=== PATIENT | female | born 1935 | race Caucasian/White ===

== ENCOUNTER 2020-03-28 19:16 | Inpatient (IN) ==
--- NOTE | 2020-03-28 19:25 | Emergency Department Note ---
Impression & Plan Hypoxia, COVID-19 virus infection ED Provider Note NAME: ANNE MARIE KELLER AGE: 85 SEX: F : 1935 ARRIVES VIA: Ambulance INFORMANT: Patient, ED PROVIDER(S): Saúl Rodríguez MD Chief Complaint: Hypoxia, recent positive COVID test HPI: Patient does present from [facility] where the patient did have a recent COVID test and the patient was found to have decreased responsiveness and associated hypoxia to 83%. The patient at the bedside does follow basic commands and is able to answer questions appropriately. The patient states that she currently denies any chest pains or shortness of breath that the patient has had a cough. The patient denies fevers or chills chest pains. The patient denies any lower extremity swelling has slightly decreased p.o. intake but no nausea or vomiting. The patient denies any hematuria dysuria or issues with her bowels. There has been reported coronavirus cases in both residents and staff at [facility]. ROS: See HPI for pertinent positives and negatives. A total of 10 systems were reviewed and otherwise negative. Past medical history: See below Surgical history: See below Social history: See below Physical Exam: GENERAL: Mildly ill in appearance, nasal cannula in place. EYE EXAM: Normal conjunctiva. PERRL, no anisocoria and EOM's grossly intact w/o pain. NECK: Supple, no nuchal rigidity, no adenopathy, non-tender. No signs of meningismus. Non-stridulous. Chest: Device in left chest. LUNGS: Crackles present. No tachypnea noted. HEART: NSR, no MRG. ABDOMEN: Abdomen soft, non-tender, normo-active bowel sounds, no masses, no rebound or guarding. BACK: No CVA TTP. SKIN: No rashes and no bruising. UPPER EXTREMITIES: Upper extremities are grossly normal. LOWER EXTREMITIES: Grossly normal, no edema. Negative Homans sign bilaterally. NEURO EXAM: Awake and alert, able to answer basic questions and does follow commands able to move all 4 extremities. Differential diagnoses: Reactive airway disease, pneumonia, pneumothorax, COPD, CHF, infections, cardiac ischemia, pulmonary embolism, musculoskeletal, gastrointestinal, as well as other pathologies. Course: Patient was seen and evaluated the bedside. Full history physical exam was performed. EKG: Indication: Shortness of breath Imaging Studies: Radiology results as stated below per my review in the radiologist's interpretation: Cardiac monitoring: An order was placed for continuous cardiac monitoring. The monitor shows a rate of 74 with sinus rhythm. MDM: Patient does present with concern for hypoxia and recent coronavirus positive testing. The patient did have blood work today which looks fairly unremarkable. The patient was placed under isolation dexamethasone 6 mg IV ordered along with chest x-ray. Patient does have a normal white count H&H and platelet count. The patient's kidney function does show some mild prerenal azotemia. The patient did have an episode of hypotension with the patient did initially receive 500 IV fluid and additional 1 L. The patient's blood pressure did improve after that time. The patient's procalcitonin is not elevated. Troponin is detectable but not elevated. Urinalysis negative for infection. Chest x-ray does show a lesion in the right midlung. Unsure as to whether or not this is new or old as there are no priors for comparison. I did speak with the patient's daughter Katerina Main. I did speak with the on-call hospitalist Dr. Mary MD the patient was admitted to the medicine service. I did speak with the hospitalist service the patient was transitioned to the intensive care unit due to concern for lower BP. The patient did improve with IV fluids alone and in the ICU was 96/55. Critical Care: I have personally spent 75 minutes of critical care time in direct management of this patient. This includes bedside care, interpretation of diagnostic studies, and testing, discussion with consultants, patient, and family members, and other require inpatient management activities. This 75 minutes is in excess of all separately billable procedures. Past Med/Surg History Medical History (Updated 03/29/20 @ 00:33 by Saúl Rodríguez MD) Gastroesophageal reflux disease Hyperlipidemia Hypertension Surgical History (Updated 03/29/20 @ 00:33 by Saúl Rodríguez MD) History of permanent cardiac pacemaker placement Social History Smoking Status: Never smoker Feels Safe at Home: Yes Allergies Allergies Allergy/AdvReac Type Severity Reaction Status Date / Time NSAIDS (Non-Steroidal Allergy Intermediate GI UPSET, Verified 03/28/20 23:15 Anti-Inflamma GI BLEED morphine AdvReac Intermediate Vomiting Verified 03/28/20 23:15 Home Meds Home Medications Medication Instructions Recorded Confirmed apixaban [Eliquis] 5 mg PO BID 03/28/20 03/28/20 atenolol 25 mg PO DAILY 03/28/20 03/28/20 atorvastatin 10 mg PO DAILY 03/28/20 03/28/20 escitalopram oxalate 10 mg PO DAILY 03/28/20 03/28/20 furosemide [Lasix] 20 mg PO DAILY 03/28/20 03/28/20 gabapentin 100 mg PO HS 03/28/20 03/28/20 isosorbide mononitrate 30 mg PO DAILY 03/28/20 03/28/20 lorazepam 0.5 mg PO QID 03/28/20 03/28/20 mirtazapine 7.5 mg PO HS 03/28/20 03/28/20 pantoprazole 40 mg PO BID 03/28/20 03/28/20 potassium chloride 20 meq PO DAILY 03/28/20 03/28/20 temazepam 15 mg PO HS 03/28/20 03/28/20 Results & Data (ED) Vital Signs Vital Signs - 24 hr 03/28/20 19:24 03/28/20 19:30 03/28/20 19:32 Temperature 36.5 C Temperature Source Oral Pulse Rate 85 83 83 Pulse Rate from SpO2 Sensor 85 83 Respiratory Rate 25 H 20 24 Respiratory Effort / Characteristics Non-Labored Spontaneous Blood Pressure 100/55 L 98/58 L 100/55 L Blood Pressure Mean 66 75 70 Pulse Oximetry 82 L 92 83 L Oxygen Delivery Method Room Air Nasal Cannula Room Air Oxygen Flow Rate 4 Sepsis Recent Fever Within 48 Hours No Sepsis New/Unexplained Change in Mental Status No Sepsis Action Taken by Nursing No Action Required Oxygen Flow Rate - Titration 4 Pulse Oximetry Post Tiitration 94 03/28/20 20:00 03/28/20 20:03 03/28/20 20:04 Temperature Temperature Source Pulse Rate 83 Pulse Rate from SpO2 Sensor 82 Respiratory Rate 19 Respiratory Effort / Characteristics Non-Labored Spontaneous Blood Pressure 94/59 L Blood Pressure Mean 64 Pulse Oximetry 92 95 94 Oxygen Delivery Method Nasal Cannula Nasal Cannula Nasal Cannula Oxygen Flow Rate 4 4 4 Sepsis Recent Fever Within 48 Hours Sepsis New/Unexplained Change in Mental Status Sepsis Action Taken by Nursing Oxygen Flow Rate - Titration Pulse Oximetry Post Tiitration 03/28/20 20:15 03/28/20 20:30 03/28/20 20:45 Temperature Temperature Source Pulse Rate 100 H 81 82 Pulse Rate from SpO2 Sensor 86 81 82 Respiratory Rate 20 24 20 Respiratory Effort / Characteristics Non-Labored Spontaneous Blood Pressure 102/62 89/53 L 104/50 L Blood Pressure Mean 82 67 73 Pulse Oximetry 86 L 97 97 Oxygen Delivery Method Nasal Cannula Other Nasal Cannula Other Oxygen Flow Rate 4 4 Sepsis Recent Fever Within 48 Hours Sepsis New/Unexplained Change in Mental Status Sepsis Action Taken by Nursing Oxygen Flow Rate - Titration Pulse Oximetry Post Tiitration 03/28/20 21:00 03/28/20 21:15 Temperature Temperature Source Pulse Rate 78 79 Pulse Rate from SpO2 Sensor 79 79 Respiratory Rate 19 17 Respiratory Effort / Characteristics Blood Pressure 89/57 L 92/54 L Blood Pressure Mean 65 63 Pulse Oximetry 94 89 L Oxygen Delivery Method Nasal Cannula Other Nasal Cannula Other Oxygen Flow Rate 4 4 Sepsis Recent Fever Within 48 Hours Sepsis New/Unexplained Change in Mental Status Sepsis Action Taken by Nursing Oxygen Flow Rate - Titration Pulse Oximetry Post Tiitration Home Medications Current Medication List: was personally reviewed by me Laboratory Data Attestation: I reviewed the patient's lab results. Result diagrams: 03/28/20 20:06 03/28/20 20:06 Lab Results 03/28/20 03/28/20 03/28/20 Range/Units 20:06 20:06 20:06 WBC 8.82 (4.8-10.8) K/uL RBC 5.39 (4.2-5.4) M/uL Hgb 14.3 (12.0-16.0) g/dL Hct 46.1 (37-47) % MCV 85.5 (80-100) fL MCH 26.5 (25-34) pg MCHC 31.0 L (32-36) g/dL RDW Std Deviation 59.7 H (36.4-46.3) fL RDW Coeff of Wali 19.3 H (11.5-14.5) % Plt Count 161 (130-400) K/uL MPV 11.8 H (7.4-10.4) fL Immature Gran % (Auto) 0.3 % Neut % (Auto) 68.7 % Lymph % (Auto) 21.9 % [place] % (Auto) 9.0 % Eos % (Auto) 0.0 % Baso % (Auto) 0.1 % Neut # (Auto) 6.06 (1.4-6.5) K/uL Lymph # (Auto) 1.93 (1.2-3.4) K/uL [place] # (Auto) 0.79 H (0.11-0.59) K/uL Eos # (Auto) 0.00 (0-0.5) K/uL Baso # (Auto) 0.01 (0-0.2) K/uL Immature Gran # (Auto) 0.03 H (0.00-0.02) K/uL PT 23.9 H (9.0-12.0) Seconds INR 2.4 H (0.9-1.1) APTT 53.5 H* (21.0-31.0) Seconds PTT Ratio 1.9 Sodium 143 (136-145) mmol/L Potassium 4.5 (3.5-5.1) mmol/L Chloride 110 H (98-107) mmol/L Carbon Dioxide 25 (21-32) mmol/L Anion Gap 8.0 (3-11) BUN 34 H (7-18) mg/dl Creatinine 1.37 H (0.6-1.2) mg/dl Est Cr Clr Drug Dosing Not Reportable Est GFR ( Amer) 40.7 Est GFR (Non-Af Amer) 35.1 BUN/Creatinine Ratio 24.7 H (10-20) Glucose 84 (70-99) mg/dl Lactate (0.4-2.0) mmol/L Calcium 8.2 L (8.5-10.1) mg/dl Magnesium 1.9 (1.8-2.4) mg/dl Total Bilirubin 1.0 (0.2-1) mg/dl AST 23 (15-37) U/L ALT 11 L (12-78) U/L Alkaline Phosphatase 121 H (45-117) U/L Troponin I 0.044 (0-0.045) ng/ml Total Protein 6.5 (6.4-8.2) gm/dl Albumin 2.7 L (3.4-5.0) gm/dl Globulin 3.8 (2.5-4.0) gm/dl Albumin/Globulin Ratio 0.7 L (0.9-2) Procalcitonin (0-0.5) ng/ml 10/08/20 10/08/20 Range/Units 20:06 20:43 WBC (4.8-10.8) K/uL RBC (4.2-5.4) M/uL Hgb (12.0-16.0) g/dL Hct (37-47) % MCV (80-100) fL MCH (25-34) pg MCHC (32-36) g/dL RDW Std Deviation (36.4-46.3) fL RDW Coeff of Wali (11.5-14.5) % Plt Count (130-400) K/uL MPV (7.4-10.4) fL Immature Gran % (Auto) % Neut % (Auto) % Lymph % (Auto) % [place] % (Auto) % Eos % (Auto) % Baso % (Auto) % Neut # (Auto) (1.4-6.5) K/uL Lymph # (Auto) (1.2-3.4) K/uL [place] # (Auto) (0.11-0.59) K/uL Eos # (Auto) (0-0.5) K/uL Baso # (Auto) (0-0.2) K/uL Immature Gran # (Auto) (0.00-0.02) K/uL PT (9.0-12.0) Seconds INR (0.9-1.1) APTT (21.0-31.0) Seconds PTT Ratio Sodium (136-145) mmol/L Potassium (3.5-5.1) mmol/L Chloride (98-107) mmol/L Carbon Dioxide (21-32) mmol/L Anion Gap (3-11) BUN (7-18) mg/dl Creatinine (0.6-1.2) mg/dl Est Cr Clr Drug Dosing Est GFR ( Amer) Est GFR (Non-Af Amer) BUN/Creatinine Ratio (10-20) Glucose (70-99) mg/dl Lactate 1.9 (0.4-2.0) mmol/L Calcium (8.5-10.1) mg/dl Magnesium (1.8-2.4) mg/dl Total Bilirubin (0.2-1) mg/dl AST (15-37) U/L ALT (12-78) U/L Alkaline Phosphatase (45-117) U/L Troponin I (0-0.045) ng/ml Total Protein (6.4-8.2) gm/dl Albumin (3.4-5.0) gm/dl Globulin (2.5-4.0) gm/dl Albumin/Globulin Ratio (0.9-2) Procalcitonin 0.22 (0-0.5) ng/ml Administered Medications Discontinued Medications Dexamethasone (Dexamethasone Sod Inj 10 Mg/Ml Vial) 6 mg IV NOW ONE Stop: 03/28/20 19:48 Last Admin: 03/28/20 20:12 Dose: 6 mg Documented by: [id number] Sodium Chloride (Nss 1000ml) 500 mls @ 999 mls/hr IV .Q31M ONE Stop: 03/28/20 20:14 Last Infusion: 03/28/20 20:43 Dose: 0 mls/hr Documented by: [id number] Admin: 03/28/20 20:12 Dose: 999 mls/hr Documented by: [id number] Sodium Chloride (Nss 1000ml) 1,000 mls @ 999 mls/hr IV .Q1H1M ONE Stop: 03/28/20 22:09 Last Infusion: 03/28/20 22:30 Dose: 0 mls/hr Documented by: [id number] Admin: 03/28/20 21:29 Dose: 999 mls/hr Documented by: [id number] Albumin Human (Albumin 25%) 50 mls @ 50 mls/hr IV Q1H MAYRA Stop: 03/29/20 00:29 Last Admin: 03/29/20 00:27 Dose: 50 mls/hr Documented by: [id number] Infusion: 03/28/20 23:33 Dose: 0 mls/hr Documented by: [id number] Admin: 03/28/20 22:30 Dose: 50 mls/hr Documented by: [id number] Sodium Chloride (Nss 1000ml) 1,000 mls @ 999 mls/hr IV .Q1H1M MAYRA Stop: 03/28/20 23:20 Last Infusion: 03/28/20 23:33 Dose: 0 mls/hr Documented by: [id number] Admin: 03/28/20 22:30 Dose: 999 mls/hr Documented by: [id number] Discharge Plan Visit Data Chief Complaint: Shortness of Breath/Dyspnea Stated Complaint: SOB, ED Provider: Saúl Rodríguez Discharge Problem: Hypoxia, COVID-19 virus infection Discharge Instructions Interventions: ED Discharge Assessment Last Done: 03/28/20 23:26
[2020-03-28] MEDS ORDERED: SODIUM CHLORIDE 0.9% 1000ML 500 ML IV ONE (19:44)
[2020-03-28] MEDS ORDERED: DEXAMETHASONE SOD INJ 10 MG/ML VIAL IV ONE (19:47)
[2020-03-28 20:17] LABS: Basophils # (auto) 0.01 K/uL (0-0.2); Basophils % (auto) 0.1 %; Hematocrit (blood only) 46.1 % (37-47); Hemoglobin 14.3 g/dL (12.0-16.0); Immature Granulocytes # (auto) 0.03 K/uL (0.00-0.02); Immature Granulocytes % (auto) 0.3 %; Lymphocytes # (auto) 1.93 K/uL (1.2-3.4); Lymphocytes % (auto) 21.9 %; Mean Corpuscular Hemoglobin 26.5 pg (25-34); Mean Corpuscular Volume 85.5 fL (80-100); Mean Platelet Volume 11.8 fL (7.4-10.4); Monocytes # (auto) 0.79 K/uL (0.11-0.59); Neutrophils # (auto) 6.06 K/uL (1.4-6.5); Neutrophils % (auto) 68.7 %; Platelet Count 161 K/uL (130-400); RDW Coefficient of Variation 19.3 % (11.5-14.5); RDW Standard Deviation 59.7 fL (36.4-46.3); Red Blood Count 5.39 M/uL (4.2-5.4); White Blood Count 8.82 K/uL (4.8-10.8)
[2020-03-28 20:34] LABS: Alanine Aminotransferase 11 U/L (12-78); Albumin Level 2.7 gm/dl (3.4-5.0); Aspartate Aminotransferase 23 U/L (15-37); BUN Creatinine Ratio 24.7 (10-20); Blood Urea Nitrogen 34 mg/dl (7-18); Calcium 8.2 mg/dl (8.5-10.1); Carbon Dioxide 25 mmol/L (21-32); Chloride 110 mmol/L (98-107); Est GFR (African American) 40.7; Est GFR (Non-African American) 35.1; Glucose 84 mg/dl (70-99); Magnesium 1.9 mg/dl (1.8-2.4); Potassium 4.5 mmol/L (3.5-5.1); Sodium 143 mmol/L (136-145)
[2020-03-28 20:39] LABS: Albumin Globulin Ratio 0.7 (0.9-2); Alkaline Phosphatase 121 U/L (45-117); Globulin 3.8 gm/dl (2.5-4.0); Total Protein 6.5 gm/dl (6.4-8.2); Troponin I 0.044 ng/ml (0-0.045)
[2020-03-28 20:41] LABS: INR 2.4 (0.9-1.1); Partial Thromboplastin Ratio 1.9; Prothrombin Time 23.9 Seconds (9.0-12.0)
[2020-03-28 20:53] LABS: Partial Thromboplastin Time 53.5 Seconds (21.0-31.0)
[2020-03-28] MEDS ORDERED: SODIUM CHLORIDE 0.9% 1000ML 1,000 ML IV ONE (21:09)
[2020-03-28 22:01] LABS: Appearance Urine Clear (Clear); Bilirubin Urine Negative (Negative); Blood Urine Negative (Negative); Color Urine Yellow; Glucose Urine UA Negative (Negative); Ketones Urine Negative (Negative); Leukocyte Esterase Urine Negative (Negative); Nitrite Urine Negative (Negative); Protein Urine Negative (Negative); Specific Gravity Urine 1.017 (1.000-1.030); Urobilinogen Urine Negative (Negative)
[2020-03-28] MEDS ORDERED: SODIUM CHLORIDE 0.9% 1000ML 1,000 ML IV SCH ×2 (22:20→23:56)
[2020-03-28] MEDS: ALBUMIN 25% 50 ML IV SCH (22:30)
[2020-03-28] MEDS ORDERED: ALUMINUM/MAGNESIUM SUSP 30 ML UDC PO PRN (23:56)
[2020-03-28] MEDS ORDERED: VANCOMYCIN CONSULT ACTIVE PRN (23:56)
[2020-03-28] MEDS ORDERED: ICU PROTOCOL FOR HYPERGLYCEMIA PRN (23:56)
[2020-03-28] MEDS ORDERED: PIPERACILL/TAZOBAC CONSULT ACTIVE PRN (23:56)
[2020-03-28] MEDS ORDERED: MAGNESIUM HYDROXIDE SUSP 30 ML UDC PO PRN (23:56)
[2020-03-29] MEDS ORDERED: PATIENT'S HEIGHT NEEDED SCH (00:15)
[2020-03-29] MEDS: ALBUMIN 25% 50 ML IV SCH ×3 (00:27→03:35)
[2020-03-29] MEDS ORDERED: PIPERACILLIN/TAZOBACTAM 3.375 GM in DEXTROSE 5% 100 ML IV ONE (01:00)
[2020-03-29] MEDS ORDERED: VANCOMYCIN HCL 1,250 MG in SODIUM CHLORIDE 0.9% 250 ML IV ONE (01:00)
--- NOTE | 2020-03-29 01:06 | Critical Care Consultation ---
Date of Consultation March 29, 2020 Assessment & Plan (1) Admitted to intensive care unit: Impression: 85-year-old female presents to the ICU following period of hypotension in the emergency department in the setting of active COVID-19 pneumonia. Neuro - Encephalopathymost likely metabolic encephalopathy due to active infection and advanced age -We will obtain CT head once stabilized as patient is on anticoagulation -Mild elevation of BUN at 33, will trend -Ammonia pending Cardiac - Hypotensionpresented with SBP 70s to 80s in the emergency department, improved following fluid resuscitation -Septic shock versus cardiogenic shock versus dehydration/hypovolemia -Hypovolemia likely as patient has improved with fluid resuscitation, would proceed with IV fluids with caution due to heart failure -Cannot rule out component of heart failure, echo pending to evaluate EF -Troponin negative -Cannot rule out septic shock at this time as patient does have active COVID- 19 pneumonia, however lactate negative and afebrile -We will continue to monitor in ICU for the time being CHFhistory of systolic heart failure per [facility] records -Holding isosorbide mononitrate and atenolol for hypotension at this time -We will hold on diuresis for the time being Anticoagulated?Patient with med rec of Eliquis 5 mg twice daily, not on documentation from prior admission to [facility] -Have attempted multiple times to contact [facility] and patient's daughter in attempt to find out why patient is on Eliquis, without success. -INR on admission 2.5 Respiratory - COVID-19 pneumonia/hypoxiahypoxia likely secondary to COVID-19 pneumonia as patient confirmed positive and presents from [facility] rehab with recent admission to OSH for bacterial pneumonia -Bilateral opacifications noted on chest x-ray, will follow-up final read -No known prior history of pulmonary disease, or tobacco abuse -Patient on long-term anticoagulation and INR 2.5, PE unlikely - receiving dexamethasone, consented for and received coalescent plasma per primary team -Follow-up with Dr. Segura concerning use of Remdesivir -Currently maintaining sats on 4 L nasal cannula, wean with pulse ox with goal sat 86 to 88% -Daily chest x-rays -Patient with recent admission for bacterial pneumonia, will continue antibiotic coverage for the time being, see below GI - N.p.o. for now GERDcontinue PPI RENAL/LYTES - LAUREN?No prior admission to compare creatinine, currently elevated at 1.4 -ATN from hypotension versus dehydration, currently improving with fluid resuscitation as is blood pressure -Avoid nephrotoxins and renally adjust medications -Continue to monitor routine BMPs and trend - Foleystrict I's and O's ENDO - No history of diabetes or thyroid disease TSH pending ICU hyperglycemic protocol HEME - H&H stable, monitor routine CBCs ID - Sepsis?/COVID-19bacterial superinfection unlikely as patient is afebrile, no leukocytosis, pro calcitonin negative -Was given empiric Vanco and Zosyn in the emergency department, Vanco DC'd as nasal MRSA negative -We will continue Zosyn for now as patient with recent admission for bacterial pneumonia -Started on 6 mg IV dexamethasone in ED, received coalescent plasma -Trending LDH and CRP -We will follow-up with Dr. Massey on use of Remdesivir LINES/IV ACCESS - Peripheral IVs DVT PROPHYLAXIS - SCDs, currently on Eliquis with INR 2.5 Thank you for allowing us to participate in the care of this patient. Please refer to my attending physician's documentation for any further recommendations. (2) Hypoxia: (3) Pneumonia due to COVID-19 virus: (4) CAD (coronary artery disease): (5) Hypertension: (6) Gastroesophageal reflux disease: (7) Hyperlipidemia: (8) Depression with anxiety: (9) Current use of assisted anticoagulation: (10) Hypotension: (11) CHF (congestive heart failure): Supervising Physician Co-Signing Physician Notes Patient seen and examined. Discussed with ICU nurse, critical care nurse practitioner, and on multidisciplinary rounds. EMR and imaging was independently reviewed. Patient initially was transferred to the ICU due to hypotension however hypotension resolved and her blood pressures been adequate. She never required initiation of vasopressor agents. She is COVID positive from apparently 3 days ago. She received Decadron per protocol as well as supplemental oxygen. She has been relatively stable overnight. Recommend continuing course of Decadron. Given the fact that she is about 3 days out from her diagnosis, treatment with remdesivir could be considered however the patient has creatinine clearance of only 27 so I would recommend holding off for now. This is not been shown to have mortality benefit but may improve oxygenation index. If her kidney function were to recover fairly rapidly, this medication could be reconsidered. Given that she is more than 3 days out from her diagnosis, I would not recommend convalescent plasma and this will be discontinued. I do recommend addressing CODE STATUS and potentially palliative care involvement. Given the patient's comorbidities, if her clinical condition were to worsen, I am not sure that aggressive interventions including mechanical ventilation would offer her a clinical benefit. She appears appropriate to transfer out of the intensive care unit. We will sign off when she leaves the ICU. Additional management per the hospitalist service History of Present Illness Attending Physician: Shree Ochoa MD History of Present Illness Mrs. Bradford is an 85-year-old female with past medical history including systolic heart failure, GERD, pacemaker, and recent admission to [facility] for bacterial pneumonia in which she completed antibiotic course and was discharged to [facility] for rehab. During admission to [facility] the patient had positive COVID 19 test, and was transferred to the emergency department last night after being found to be hypoxic and altered mental status. In the emergency department, patient was placed on nasal cannula, and administered dexamethasone 6 mg IV. She was consented for coalescent plasma by the primary team, which was administered. She was found to be hypotensive, and received 2.5 L crystalloid and IV albumin. Patient initially showed no improvement from volume resuscitation she was transferred to the ICU for anticipated need for vasopressor support. On arrival to the ICU, patient's blood pressures remain soft with systolics in the 90s and maps in the 60s. Transthoracic echo pending, no prior study at this facility. She is currently confused and does not participate with exam. She is currently hemodynamically stable and maintaining O2 sats on 4 L nasal cannula. We will continue to monitor in ICU at this time, but no current need for vasopressor support for the time being. Allergies Allergy/AdvReac Type Severity Reaction Status Date / Time NSAIDS (Non-Steroidal Allergy Intermediate GI UPSET, Verified 03/28/20 23:15 Anti-Inflamma GI BLEED morphine AdvReac Intermediate Vomiting Verified 03/28/20 23:15 Home Medications Home Medications Medication Instructions Recorded Confirmed Type apixaban [Eliquis] 5 mg PO BID 03/28/20 03/28/20 History atenolol 25 mg PO DAILY 03/28/20 03/28/20 History atorvastatin 10 mg PO DAILY 03/28/20 03/28/20 History escitalopram oxalate 10 mg PO DAILY 03/28/20 03/28/20 History furosemide [Lasix] 20 mg PO DAILY 03/28/20 03/28/20 History gabapentin 100 mg PO HS 03/28/20 03/28/20 History isosorbide mononitrate 30 mg PO DAILY 03/28/20 03/28/20 History lorazepam 0.5 mg PO QID 03/28/20 03/28/20 History mirtazapine 7.5 mg PO HS 03/28/20 03/28/20 History pantoprazole 40 mg PO BID 03/28/20 03/28/20 History potassium chloride 20 meq PO DAILY 03/28/20 03/28/20 History temazepam 15 mg PO HS 03/28/20 03/28/20 History Patient History Medical History (Updated 03/29/20 @ 03:20 by JENIFER Ramirez) CAD (coronary artery disease) Current use of salvage determiner anticoagulation Depression with anxiety Gastroesophageal reflux disease Hyperlipidemia Hypertension Surgical History (Updated 03/29/20 @ 00:33 by Saúl Rodríguez MD) History of permanent cardiac pacemaker placement Social History Smoking Status: Unknown if ever smoked Hx Alcohol Use: No Hx Substance Use: No Preferred Language: [place]agu[place] Communication Ability: Effective Recording Artist Required: No Beliefs That Will Affect Care: None Current Living Situation: Personal Care Facility Other Information That Helps Us Care for You: No Feels Safe at Home: Yes Safety Concerns: Feels Safe At This Time Assistive Devices: None Assistive Devices Comment: none present Review of Systems Review of Systems: Unobtainable due to cognitive status Physical Exam Constitutional: + thin, + altered mental status and + lethargic Eyes: PERRL, conjunctivae normal, anicteric sclerae ENMT: external ear and nose normal, oropharynx normal Neck: trachea midline, no thyromegaly Respiratory: normal respiratory effort, lungs clear to auscultation no labored breathing, no cough, not tachypneic and no stridor Auscultation: no crackles and no wheezes Cardiovascular: RRR, no murmur, no edema Heart Sounds: normal S1 and normal S2 Vessels: no JVD Extremities: normal capillary refill; no pedal edema and no edema Gastrointestinal (Abdomen): normal bowel sounds, soft, nontender, no hepatosplenomegaly Musculoskeletal: no cyanosis or clubbing, extremities motor strength 5/5 Skin: no rashes, warm and dry Neurologic: moves all extremities, awake and + confused Cranial Nerves: PERRL Psychiatric: Orientation: oriented to person; + not oriented to place and + not oriented to time Eye Contact: + poor eye contact Results & Data Results & Data ([facility]) Vital Signs (Past 12 Hours) Vital Signs Temp Pulse Pulse Resp BP BP Pulse Ox 03/29/20 00:45 36.8 C 76 15 94/65 L 97 03/29/20 00:34 36.7 C 75 74 16 77/45 L 95/56 L 95 03/29/20 00:33 72 03/29/20 00:30 95 03/29/20 00:29 72 03/29/20 00:28 95 03/29/20 00:12 36.8 C 78 15 93/52 L 92 03/29/20 00:11 36.8 C 79 14 96/55 L 96 03/28/20 23:15 72 13 79/44 L 94 03/28/20 23:07 90 03/28/20 23:00 70 15 71/41 L 95 03/28/20 22:45 74 13 86/44 L 96 03/28/20 22:35 20 92 03/28/20 22:31 74 15 103/74 94 03/28/20 22:30 80 18 98 03/28/20 22:15 80 19 80/45 L 98 03/28/20 22:03 93 03/28/20 22:00 80 16 93/52 L 90 03/28/20 21:53 81 18 96/62 L 03/28/20 21:27 18 94 03/28/20 21:15 79 17 92/54 L 89 L 03/28/20 21:00 78 19 89/57 L 94 03/28/20 20:45 82 20 104/50 L 97 03/28/20 20:30 81 24 89/53 L 97 03/28/20 20:15 100 H 20 102/62 86 L 03/28/20 20:04 94 03/28/20 20:03 95 03/28/20 20:00 83 19 94/59 L 92 03/28/20 19:32 36.5 C 83 24 100/55 L 83 L 03/28/20 19:30 83 20 98/58 L 92 03/28/20 19:24 85 25 H 100/55 L 82 L Coding Level of Care Code 16740 Office/OBS Consult Lvl 5 Diagnoses Admitted to intensive care unit Z78.9 Hypoxia R09.02 Pneumonia due to COVID-19 virus U07.1; J12.89 CAD (coronary artery disease) I25.10 Hypertension I10 Gastroesophageal reflux disease K21.9 Hyperlipidemia E78.5 Depression with anxiety F41.8 Current use of salvage determiner anticoagulation Z79.01 Hypotension I95.9 CHF (congestive heart failure) I50.9
--- NOTE | 2020-03-29 01:08 | History & Physical Report ---
Date of Service March 29, 2020 The patient was seen and examined on March 28, 2020 Assessment & Plan (1) Admitted to intensive care unit: Admitted to intensive care unit due to hypoxia associated with COVID-19 virus pneumonia, with hypotension. ICU scientist engineer Dr. Segura and staff have been consulted Present on Admission?: Yes (2) Pneumonia due to COVID-19 virus: Initially diagnosed on 03/26/2020 while at [facility]. Received Decadron 6 mg IV in the ED, and will continue 6 mg IV every 12 hours. Vancomycin IV and Zosyn IV per pharmacokinetic monitoring. Presently requiring 4 L nasal cannula oxygen to achieve target pulse ox of 94 to 95%. 1 unit convalescent plasma to be infused this evening, with verbal phone authorization from daughter. To decide upon use of Remdesivir, her daughter, VON, is in agreement with use Present on Admission?: Yes (3) CAD (coronary artery disease): CAD/hypertension- Holding meds due to hypotension. Specifics of CAD not known at this time due to unavailability of records Present on Admission?: Yes (4) Hypertension: Holding atenolol, furosemide, isosorbide mononitrate and potassium chloride due to hypotension Present on Admission?: Yes (5) Hyperlipidemia: Will take atorvastatin when alert. Present on Admission?: Yes (6) Gastroesophageal reflux disease: Hold pantoprazole [address] twice daily Place on famotidine 20 mg IV every 12 hours Present on Admission?: Yes (7) Depression with anxiety: Patient may not be alert enough at this point, will therefore hold E citalopram, gabapentin, lorazepam, mirtazapine and temazepam. Present on Admission?: Yes (8) Current use of intermodal dispatcher anticoagulation: Noted is being on apixaban 5 mg p.o. twice daily from admission records from [facility]. No records available from [facility] at this time, so unclear reasons as to why patient is on Eliquis. INR 2.4 upon admission. Holding Eliquis tonight, would likely be best with Lovenox subcu in a.m. Present on Admission?: Yes (9) Hypotension: Received a total of 2-1/2 L of NSS while in the ED. Received albumin 25 g IV x2 while in the ED. Monitor closely while in the ICU Present on Admission?: Yes Admission and Anticipated Discharge Date Admission Date: March 28, 2020 History of Present Illness Chief Complaint: The patient was transferred to the emergency department from [facility], where she had been diagnosed with COVID 19 on Monday 03/26, with today developing decreased responsiveness and hypoxia to 83% on room air Primary Care Provider: NO PCP The patient is an 85-year-old female with a past medical history including hypertension, hyperlipidemia, depression, CHF, anxiety, CAD, insomnia and GERD. She presents to the ED as noted above. She required 4 L of nasal cannula oxygen in the ED to get pulse ox to 94% range. In the emergency department, she was confused and lethargic. Allergies Allergy/AdvReac Type Severity Reaction Status Date / Time NSAIDS (Non-Steroidal Allergy Intermediate GI UPSET, Verified 03/28/20 23:15 Anti-Inflamma GI BLEED morphine AdvReac Intermediate Vomiting Verified 03/28/20 23:15 Home Medications Home Medications Medication Instructions Recorded Confirmed Type apixaban [Eliquis] 5 mg PO BID 03/28/20 03/28/20 History atenolol 25 mg PO DAILY 03/28/20 03/28/20 History atorvastatin 10 mg PO DAILY 03/28/20 03/28/20 History escitalopram oxalate 10 mg PO DAILY 03/28/20 03/28/20 History furosemide [Lasix] 20 mg PO DAILY 03/28/20 03/28/20 History gabapentin 100 mg PO HS 03/28/20 03/28/20 History isosorbide mononitrate 30 mg PO DAILY 03/28/20 03/28/20 History lorazepam 0.5 mg PO QID 03/28/20 03/28/20 History mirtazapine 7.5 mg PO HS 03/28/20 03/28/20 History pantoprazole 40 mg PO BID 03/28/20 03/28/20 History potassium chloride 20 meq PO DAILY 03/28/20 03/28/20 History temazepam 15 mg PO HS 03/28/20 03/28/20 History Past Med/Surg History Medical History (Updated 03/29/20 @ 01:26 by Shree Ochoa MD) CAD (coronary artery disease) Current use of intermodal dispatcher anticoagulation Depression with anxiety Gastroesophageal reflux disease Hyperlipidemia Hypertension Surgical History (Updated 03/29/20 @ 00:33 by Saúl Rodríguez MD) History of permanent cardiac pacemaker placement Social History Smoking Status: Unknown if ever smoked Hx Alcohol Use: No Hx Substance Use: No Preferred Language: Grenadian Communication Ability: Effective Garment Turner Required: No Beliefs That Will Affect Care: None Current Living Situation: Personal Care Facility Other Information That Helps Us Care for You: No Feels Safe at Home: Yes Safety Concerns: Feels Safe At This Time Assistive Devices: None Assistive Devices Comment: none present Review of Systems Review of Systems: Unobtainable due to cognitive status Physical Exam Physical Exam: The patient is awake, confused, normocephalic and atraumatic, lying in bed and in no acute distress. HEENT--PERRL, EOMI, mucous membranes and oropharynx dry. Neck--supple. No JVD. No bruits. Thyroid normal, trachea midline, no adenopathy. Heart--normal S1 and S2. No murmurs, rubs or gallops. Lungs--coarse breath sounds bilaterally. No respiratory distress, no accessory muscle use. Abdomen--normal bowel sounds and soft. Nontender. Nondistended. Extremities--no cyanosis or clubbing. No edema. Dermatologic--normal skin turgor, normal color, no abnormal lymph nodes, no rash. Neurologic--cranial nerves II through XII grossly intact. Rheumatologic--limited exam Psychiatric--confused Results & Data Results & Data ([facility]) Vital Signs (Past 12 Hours) Vital Signs Temp Pulse Pulse Resp BP BP Pulse Ox 03/29/20 00:45 98.2 F 76 15 94/65 L 97 03/29/20 00:34 98.1 F 75 74 16 77/45 L 95/56 L 95 03/29/20 00:33 72 03/29/20 00:30 95 03/29/20 00:29 72 03/29/20 00:28 95 03/29/20 00:12 98.2 F 78 15 93/52 L 92 03/29/20 00:11 98.2 F 79 14 96/55 L 96 03/28/20 23:15 72 13 79/44 L 94 03/28/20 23:07 90 03/28/20 23:00 70 15 71/41 L 95 10/08/20 22:45 74 13 86/44 L 96 03/28/20 22:35 20 92 03/28/20 22:31 74 15 103/74 94 03/28/20 22:30 80 18 98 03/28/20 22:15 80 19 80/45 L 98 03/28/20 22:03 93 03/28/20 22:00 80 16 93/52 L 90 03/28/20 21:53 81 18 96/62 L 03/28/20 21:27 18 94 03/28/20 21:15 79 17 92/54 L 89 L 03/28/20 21:00 78 19 89/57 L 94 03/28/20 20:45 82 20 104/50 L 97 03/28/20 20:30 81 24 89/53 L 97 03/28/20 20:15 100 H 20 102/62 86 L 03/28/20 20:04 94 03/28/20 20:03 95 03/28/20 20:00 83 19 94/59 L 92 03/28/20 19:32 97.7 F 83 24 100/55 L 83 L 03/28/20 19:30 83 20 98/58 L 92 03/28/20 19:24 85 25 H 100/55 L 82 L Laboratory Results Laboratory Results WBC 8.82 K/uL (4.8-10.8) 03/28/20 20:06 RBC 5.39 M/uL (4.2-5.4) 03/28/20 20:06 Hgb 14.3 g/dL (12.0-16.0) 03/28/20 20:06 Hct 46.1 % (37-47) 03/28/20 20:06 MCV 85.5 fL (80-100) 03/28/20 20:06 MCH 26.5 pg (25-34) 03/28/20 20:06 MCHC 31.0 g/dL (32-36) L 03/28/20 20:06 RDW Std Deviation 59.7 fL (36.4-46.3) H 03/28/20 20:06 RDW Coeff of Wali 19.3 % (11.5-14.5) H 03/28/20 20:06 Plt Count 161 K/uL (130-400) 03/28/20 20:06 MPV 11.8 fL (7.4-10.4) H 03/28/20 20:06 Immature Gran % (Auto) 0.3 % 03/28/20 20:06 Neut % (Auto) 68.7 % 03/28/20 20:06 Lymph % (Auto) 21.9 % 03/28/20 20:06 O'Brien % (Auto) 9.0 % 03/28/20 20:06 Eos % (Auto) 0.0 % 03/28/20 20:06 Baso % (Auto) 0.1 % 03/28/20 20:06 Neut # (Auto) 6.06 K/uL (1.4-6.5) 03/28/20 20:06 Lymph # (Auto) 1.93 K/uL (1.2-3.4) 03/28/20 20:06 O'Brien # (Auto) 0.79 K/uL (0.11-0.59) H 03/28/20 20:06 Eos # (Auto) 0.00 K/uL (0-0.5) 03/28/20 20:06 Baso # (Auto) 0.01 K/uL (0-0.2) 03/28/20 20:06 Immature Gran # (Auto) 0.03 K/uL (0.00-0.02) H 03/28/20 20:06 PT 23.9 Seconds (9.0-12.0) H 03/28/20 20:06 INR 2.4 (0.9-1.1) H 03/28/20 20:06 APTT 53.5 Seconds (21.0-31.0) H* 03/28/20 20: PTT Ratio 1.9 03/28/20 20: Sodium 143 mmol/L (136-145) 03/28/20 20:06 Potassium 4.5 mmol/L (3.5-5.1) 03/28/20 20:06 Chloride 110 mmol/L (98-107) H 03/28/20 20:06 Carbon Dioxide 25 mmol/L (21-32) 03/28/20 20:06 Anion Gap 8.0 (3-11) 03/28/20 20:06 BUN 34 mg/dl (7-18) H 03/28/20 20:06 Creatinine 1.37 mg/dl (0.6-1.2) H 03/28/20 20:06 Est Cr Clr Drug Dosing Not Reportable 03/28/20 20: Est GFR ( Amer) 40.7 03/28/20 20: Est GFR (Non-Af Amer) 35.1 03/28/20 20:06 BUN/Creatinine Ratio 24.7 (10-20) H 03/28/20 20: Glucose 84 mg/dl (70-99) 03/28/20 20: Lactate 1.9 mmol/L (0.4-2.0) 03/28/20 20:43 Calcium 8.2 mg/dl (8.5-10.1) L 03/28/20 20: Magnesium 1.9 mg/dl (1.8-2.4) 03/28/20 20: Total Bilirubin 1.0 mg/dl (0.2-1) 03/28/20 20: AST 23 U/L (15-37) 03/28/20 20: ALT 11 U/L (12-78) L 03/28/20 20: Alkaline Phosphatase 121 U/L (45-117) H 03/28/20 20: Troponin I 0.044 ng/ml (0-0.045) 03/28/20 20: Total Protein 6.5 gm/dl (6.4-8.2) 03/28/20 20: Albumin 2.7 gm/dl (3.4-5.0) L 03/28/20 20: Globulin 3.8 gm/dl (2.5-4.0) 03/28/20 20: Albumin/Globulin Ratio 0.7 (0.9-2) L 03/28/20 20: Procalcitonin 0.22 ng/ml (0-0.5) 03/28/20 20: Urine Color Yellow 03/28/20: Urine Appearance Clear (Clear) 03/28/20: Urine pH 5.0 (4.5-7.5) 03/28/20: Ur Specific [place] 1.017 (1.000-1.030) 03/28/20: Urine Protein Negative (Negative) 03/28/20: Urine Glucose (UA) Negative (Negative) 10/08/20 21:31 Urine Ketones Negative (Negative) 03/28/20 21:31 Urine Blood Negative (Negative) 03/28/20 21:31 Urine Nitrite Negative (Negative) 03/28/20 21:31 Urine Bilirubin Negative (Negative) 03/28/20 21:31 Urine Urobilinogen Negative (Negative) 03/28/20 21:31 Ur Leukocyte Esterase Negative (Negative) 03/28/20 21:31 Blood Type O Positive 03/28/20 22:03 Antibody Screen NEGATIVE 03/28/20 22:03 Code Status & VTE Plan Code Status Full code, as discussed with her daughter over the phone VTE Prophylaxis Plan VTE Prophylaxis will be ordered: Yes Critical Care Time Critical Care Time: Yes Total Critical Care Time: 50 Total critical care time was 50 minutes PG Care Time/CCT Total # of Minutes Spent Total Time Spent with Patient: Total time spent is greater than 50% in coordination of care (as documented) at patient's floor/unit and/or counseling patient: Critical Care Time: Yes Total Critical Care Time: 50 Coding Level of Care Code 83156 Initial Inpt Care Lvl 3 Diagnoses Admitted to intensive care unit Z78.9 Pneumonia due to COVID-19 virus U07.1; J12.89 CAD (coronary artery disease) I25.10 Hypertension I10 Hyperlipidemia E78.5 Gastroesophageal reflux disease K21.9 Depression with anxiety F41.8 Current use of intermodal dispatcher anticoagulation Z79.01 Hypotension I95.9 Additional Codes Critical Care Time - Critical Care Time: Yes ([id number]) Time Spent (min) 50
[2020-03-29 01:56] LABS: iSTAT Allen Test Pass; iSTAT Art Bld Gas pCO2 Correct 42 mmHg (35-46); iSTAT Art Bld Gas pH Corrected 7.291 (7.35-7.45); iSTAT Arterial Blood Gas HCO3 20 meg/L (19-24); iSTAT Arterial Blood Gas pCO2 42 mmHg (35-46); iSTAT Arterial Blood Gas pH 7.29 (7.35-7.45); iSTAT Arterial Blood Gas pO2 74 mmHg (80-95); iSTAT Arterial Blood Gas pO2 C 73; iSTAT Carbon Dioxide 21 mmol/L (24-31); iSTAT Hematocrit 39 % (37-47); iSTAT Hemoglobin 13.3 g/dl (12.0-16.0); iSTAT Potassium 4.2 mmol/L (3.3-5.0); iSTAT Site L Radial; iSTAT Sodium 145 mmol/L (135-144)
[2020-03-29 02:12] LABS: BUN Creatinine Ratio 29.6 (10-20); Calcium 7.8 mg/dl (8.5-10.1); Creatinine Clr Calc Pharmacy 30.4 ml/min; Est GFR (African American) 51.9; Est GFR (Non-African American) 44.8; Potassium 4.3 mmol/L (3.5-5.1)
[2020-03-29 05:25] LABS: Mean Corpuscular Hgb Conc 30.3 g/dL (32-36)
[2020-03-29 05:32] LABS: Prothrombin Time 20.4 Seconds (9.0-12.0)
[2020-03-29 05:41] LABS: Albumin Level 3.2 gm/dl (3.4-5.0); BUN Creatinine Ratio 27.3 (10-20); Calcium 7.6 mg/dl (8.5-10.1); Creatinine Clr Calc Pharmacy 27.7 ml/min; Est GFR (African American) 46.3; Magnesium 1.9 mg/dl (1.8-2.4); Potassium 4.4 mmol/L (3.5-5.1)
[2020-03-29 05:48] LABS: Hemoglobin 12.1 g/dL (12.0-16.0); Mean Corpuscular Hemoglobin 26.5 pg (25-34); Mean Corpuscular Volume 87.7 fL (80-100); RDW Coefficient of Variation 19.4 % (11.5-14.5); RDW Standard Deviation 62.3 fL (36.4-46.3); Red Blood Count 4.56 M/uL (4.2-5.4); White Blood Count 5.21 K/uL (4.8-10.8)
[2020-03-29 05:51] LABS: Albumin Globulin Ratio 1.1 (0.9-2); Bilirubin,Total 1.2 mg/dl (0.2-1); Thyroid Stimulating Hormone 2.33 uIu/ml (0.300-4.500); Total Protein 6.2 gm/dl (6.4-8.2)
[2020-03-29 06:19] LABS: Immature Granulocytes # (auto) 0.01 K/uL (0.00-0.02); Immature Granulocytes % (auto) 0.2 %; Lymphocytes # (auto) 1.34 K/uL (1.2-3.4); Lymphocytes % (auto) 25.7 %; Mean Platelet Volume 11.1 fL (7.4-10.4); Monocytes # (auto) 0.31 K/uL (0.11-0.59); Neutrophils # (auto) 3.55 K/uL (1.4-6.5); Neutrophils % (auto) 68.1 %; Platelet Count 105 K/uL (130-400); Platelet Estimate Decreased (Normal)
--- NOTE | 2020-03-29 07:16 | CT Scan Report ---
CT SCAN OF THE BRAIN WITHOUT IV CONTRAST CLINICAL HISTORY: Change in mental status. COMPARISON STUDY: No priors. TECHNIQUE: Unenhanced axial CT scan of the brain is performed from the vertex to the skull base. A do se lowering technique was utilized adhering to the principles of ALARA. CT DOSE: 729.78 mGycm FINDINGS: Brain parenchyma: There are age-related involutional changes noting moderate subcortical and periven tricular microangiopathic change. There is no hemorrhage, mass effect, or evidence of acute territori al ischemia by CT criteria. Heath-white matter differentiation is preserved. No extra-axial fluid alexander ection is seen. Ventricles, sulci, cisterns: Prominent secondary to involutional change. Intracranial vasculature: There is atherosclerotic calcification of the cavernous carotid and vertebr al arteries. Calvarium: Unremarkable. Sinuses and mastoids: The paranasal sinuses are clear. The mastoid air cells are well pneumatized. Orbits: The bony orbits are grossly intact. There are bilateral ocular lens implants. IMPRESSION: There is no hemorrhage, mass effect, or evidence of acute territorial ischemia by CT suyapa curry. ACT 112: Negative or not required by law. Electronically signed by: Teddy Maddox M.D. 03/29/2020 7:15 AM
--- NOTE | 2020-03-29 07:58 | XRay Report ---
XR chest 1V portable CLINICAL HISTORY: COVID + COMPARISON STUDY: No previous studies for comparison. FINDINGS: Dual-lead left subclavian pacemaker is in place. Left basilar opacity is present with a sma ll left pleural effusion. There is no pneumothorax. There is mild cardiomegaly without evidence for p ulmonary edema. A round density projected the right hilum is noted. This may reflect a calcific lymph node or pulmonary vessels. The pulmonary nodules considered less likely. IMPRESSION: 1. Left basilar opacity which may reflect pneumonia or atelectasis. Radiographic follow up is recomme nded. 2. Small left pleural effusion. ACT 112: Negative or not required by law. Electronically signed by: Eugene Casper M.D. 03/29/2020 7:57 AM
[2020-03-29] MEDS ORDERED: DEXAMETHASONE SOD PHOSPHATE 6 MG in SYRINGE 0 ML IV SCH (08:00)
[2020-03-29] MEDS ORDERED: dexAMETHasone 6 MG in DEXTROSE 5% 25 ML IV SCH (08:00)
[2020-03-29] MEDS: PIPERACILLIN/TAZOBACTAM 3.375 GM in DEXTROSE 5% 100 ML IV SCH ×2 (08:30→16:19)
[2020-03-29] MEDS: dexAMETHasone 6 MG in SYRINGE 0 ML IV SCH (08:30)
--- NOTE | 2020-03-29 09:16 | XRay Report ---
XR chest 1V portable CLINICAL HISTORY: Pneumonia/ COVID19 COMPARISON STUDY: 03/28/2020 FINDINGS: The study is rotated. The heart is mildly enlarged. There is a left subclavian dual-chamber central venous pacemaker. There is persistent dense left lower lobe parenchymal consolidation with a suspected small left pleural effusion. There is mild diffuse interstitial thickening.[ IMPRESSION: 1. Rotated study 2. Persistent left lower lobe parenchymal consolidation with a small left pleural effusion ACT 112: Negative or not required by law. Electronically signed by: Pranav Corrales M.D. 03/29/2020 9:14 AM
--- NOTE | 2020-03-29 11:48 | Electrocardiogram Report ---
Test Reason : Blood Pressure : / mmHG Vent. Rate : 083 BPM Atrial Rate : 083 BPM P-R Int : 224 ms QRS Dur : 094 ms QT Int : 406 ms P-R-T Axes : 082 198 -26 degrees QTc Int : 477 ms Possible limb lead reversal. Sinus rhythm with 1st degree A-V block Incomplete right bundle branch block Right ventricular hypertrophy Poor R wave progression, consider anterior UT vs. lead placement vs. LVH T wave abnormality, consider anterior ischemia Abnormal ECG No previous ECGs available Confirmed by Sean Flores ([id number]) on 03/29/2020 11:47:58 AM Referred By: REFERRED SELF Confirmed By:Arnav Flores
--- NOTE | 2020-03-29 17:21 | Hospitalist Progress Note ---
Date of Service March 29, 2020 Assessment & Plan (1) Pneumonia due to COVID-19 virus: Initially diagnosed on 03/26/2020 while at [facility]. With severe disease evidenced by hypoxia and requirement of oxygen with pneumonia on chest x-ray. Also with acute metabolic encephalopathy resulting f rom acute illness. Encephalopathy seems to be improving today. She remains on 3 L nasal cannula to keep pulse ox at 95% -Continue dexamethasone 6 mg IV once daily x10-day course-started on 03/28 -Continue IV Zosyn in case of superimposed bacterial pneumonia and recent hospitalization for pneumonia at [facility] 2 weeks ago MRSA swab was negative and IV vancomycin was discontinued -Check procalcitonin in the morning and discontinue IV Zosyn if procalcitonin is negative and blood cultures remain no growth -She did receive 1 unit of convalescent plasma Pulmonary recommends against use of Remdesivir due to borderline creatinine clearance unless renal function rapidly improves -Follow CBC, CMP, d-dimer, ferritin, LDH, CRP, ESR, PT/INR in the morning -Okay to advance diet to heart healthy as she is more alert -DC IV fluids (2) Hypoxia: Secondary to COVID-19 pneumonia as above No chronic lung issues except does have scoliosis which may be restrictive -Continue supplemental O2 and wean off as able to keep pulse ox greater than 90- 92% Treating COVID-19 pneumonia as above (3) CAD (coronary artery disease): With a remote history of [place] and stents placed in both 2002 and [address] Tinoco, cardiology in [place] Troponin upon admission was 0.044 ECG shows limb lead reversal and a right bundle branch block but no acute ischemia. The patient denies any chest pain. I do not see aspirin on her home medication list-we will need to find out if there is a reason she is not on an antiplatelet-will discuss with her daughter -Restart home apixaban which is actually for history of PE -Restart home atenolol in the morning as long as blood pressures are improved as they were low -Continue holding home isosorbide until blood pressures stable after restarting atenolol (4) Hypertension: With hypotension requiring ICU admission. Now improved status post IV fluid resuscitation as well as administration of IV albumin -DC IV fluids Restarting home atenolol and furosemide in the morning -Holding home isosorbide as above (5) Hyperlipidemia: Okay to restart home atorvastatin (6) Gastroesophageal reflux disease: Restart home PPI twice daily and discontinue IV Pepcid (7) Depression with anxiety: Mental status is improved and can take p.o. -Restart home Lexapro, mirtazapine and temazepam to avoid withdrawal from benzos She also has lorazepam listed as scheduled 4 times daily. Her daughter confirms that the patient does take this at least 3 times a day every day-we will hold off on making it scheduled until her mental status continues to improve back to normal. -She is restarting temazepam which will help prevent benzodiazepine withdrawal (8) Current use of alf anticoagulation: Discussed with her daughter on the phone-she is on apixaban for history of pulmonary embolism INR 2.4 upon admission and PTT also elevated-this may be secondary to nutritional deficiency/vitamin K deficiency. Will give vitamin K 2.5 mg IV x1 and restart home apixaban 5 mg p.o. twice daily to prevent VTE especially in the setting of COVID-19 (9) History of pulmonary embolism: As above (10) Hypotension: As noted above (11) History of permanent cardiac pacemaker placement: Placed for history of syncope-as per daughter. Sounds like symptomatic bradycardia Pacing on telemetry here (12) Coagulopathy: As noted above Vitamin K being given Follow PT/PTT/INR in the morning (13) CHF (congestive heart failure): Noted in history, but daughter is unaware of this diagnosis. Cannot obtain echo in the setting of COVID positive patient proBNP is significantly elevated at 25,000 upon admission Does have a small left pleural effusion but may be parapneumonic She is on Lasix but no other guideline directed therapy for systolic CHF. Most likely chronic diastolic CHF. She is not volume overloaded at this time Restarting home p.o. Lasix in the morning We will follow daily weights and strict I's and O's (14) CKD (chronic kidney disease) stage 3, GFR 30-59 ml/min: Creatinine minimally elevated and unclear baseline -Avoid nephrotoxins -renally dose meds when appropriate -follow BMP (15) Thrombocytopenia: Platelets mildly low at 106, likely secondary to COVID-19 Follow CBC (16) Scoliosis: Obvious on examination and causes chronic back pain as per her daughter We will restart home gabapentin for pain (17) Insomnia: Okay to restart home temazepam to avoid withdrawal (18) DVT prophylaxis: Apixaban Disposition-stable for downgrade out of the ICU to PCU Discussed CODE STATUS with daughter on the phone at length as patient is with encephalopathy. She reports that her mom wanted to be a DNR/DNI since being at the senior care (as per senior care records), however in past conversations prior to recent hospitalization and placement in senior care, she had stated she wanted to be a full code. Daughter now understands that patient is realiz ing that she does not want to live if she is suffering and very sick. Therefore, she will be changed to a DNR/DNI Admission and Anticipated Discharge Date Admission Date: March 28, 2020 Subjective RN reports that patient was confused all day, however when I saw her, she was very pleasant and conversive. She was pleasantly confused but I was able to explain to her why she is in the hospital. She was surprised to hear that she had COVID-19. She reports some cough and some shortness of breath. Denies any chest pain or abdominal pain. No nausea. She asked me which town she was in and was trying to tell me where her daughter lived but was frustrated that she could not remember the name of the town. Her blood pressures have improved and she was never started on any vasopressors after transfer to the ICU last night. She was given IV albumin and IV fluids. I was notified by the legal associate team that she was stable for discharge out of the ICU. I discussed her care and her history at length with her daughter, Katerina, on the phone. Review of Systems Review of Systems: All systems reviewed & are unremarkable except as noted in HPI & below Physical Exam Constitutional: + thin; no acute distress and not ill appearing Eyes: + anicteric sclerae ENMT: external ear and nose normal, oropharynx normal Neck: trachea midline, no thyromegaly Respiratory: normal respiratory effort (With nasal cannula in place); no cough Auscultation: + crackles (At the bases bilaterally); no rhonchi and no wheezes Cardiovascular: RRR, no murmur, no edema Chest (Breasts): Chest: normal inspection of chest Gastrointestinal (Abdomen): normal bowel sounds, soft, nontender, no hepatosplenomegaly Musculoskeletal: Extremities: extremities normal to inspection; no cyanosis and no clubbing Skin: no rashes, warm and dry Neurologic: moves all extremities and awake; no focal motor deficits Psychiatric: Orientation: alert, oriented to person and cooperative; + not oriented to place and + not oriented to time Eye Contact: good eye contact Speech: normal rate/rhythm/volume of speech Affect: euthymic affect Genitourinary: Ralph catheter in place draining small amount of clear yellow urine Lymphatic: no lymphedema Results & Data Results & Data ([facility]) Vital Signs (Past 12 Hours) Vital Signs Temp Pulse Resp BP Pulse Ox 03/29/20 15:45 70 98 03/29/20 15:30 65 99 03/29/20 15:15 60 96 03/29/20 15:00 60 98 03/29/20 14:51 60 97/59 L 99 03/29/20 14:45 61 98 03/29/20 14:30 60 99 03/29/20 14:15 68 96 03/29/20 14:13 66 103/58 L 98 03/29/20 14:00 62 99 03/29/20 13:45 66 99 03/29/20 13:30 95 H 98 03/29/20 13:15 60 100 03/29/20 13:00 60 97 03/29/20 12:51 66 85/53 L 99 03/29/20 12:45 60 99 03/29/20 12:30 71 97 03/29/20 12:15 99 H 96 03/29/20 12:10 99 H 96/60 L 100 03/29/20 12:01 36.4 C L 60 100 03/29/20 11:59 99 H 77/43 L 100 03/29/20 11:51 99 H 82/49 L 100 03/29/20 11:45 61 100 03/29/20 11:30 71 100 03/29/20 11:15 61 100 03/29/20 11:00 66 97 03/29/20 10:51 69 110/66 100 03/29/20 10:45 64 100 03/29/20 10:30 69 100 03/29/20 10:15 68 100 03/29/20 10:00 64 100 03/29/20 09:52 70 93/63 L 100 03/29/20 09:45 96 H 99 03/29/20 09:30 70 92 03/29/20 09:15 70 100 03/29/20 09:00 36.3 C L 85 20 99 03/29/20 08:53 79 108/51 L 96 03/29/20 08:45 96 H 92 03/29/20 08:43 72 102/60 93 03/29/20 08:30 65 98 03/29/20 08:15 75 94 03/29/20 08:00 68 99 03/29/20 07:51 68 89/48 L 100 03/29/20 07:45 67 98 03/29/20 07:30 97 H 97 03/29/20 07:15 63 98 03/29/20 07:00 64 100 03/29/20 06:51 74 98/53 L 99 03/29/20 06:45 98 H 98 03/29/20 06:30 84 79 L 03/29/20 06:15 96 H 99 03/29/20 06:00 71 98 03/29/20 05:51 100 H 88/50 L 98 Laboratory Results 03/29/20 03/29/20 03/29/20 Range/Units 08:42 05:00 05:00 WBC (4.8-10.8) K/uL RBC (4.2-5.4) M/uL Hgb (12.0-16.0) g/dL POC Hgb (12.0-16.0) g/dl Hct (37-47) % POC Hct (37-47) % MCV (80-100) fL MCH (25-34) pg MCHC (32-36) g/dL RDW Std Deviation (36.4-46.3) fL RDW Coeff of Wali (11.5-14.5) % Plt Count (130-400) K/uL MPV (7.4-10.4) fL Immature Gran % (Auto) % Neut % (Auto) % Lymph % (Auto) % Giles % (Auto) % Eos % (Auto) % Baso % (Auto) % Neut # (Auto) (1.4-6.5) K/uL Lymph # (Auto) (1.2-3.4) K/uL Giles # (Auto) (0.11-0.59) K/uL Eos # (Auto) (0-0.5) K/uL Baso # (Auto) (0-0.2) K/uL Immature Gran # (Auto) (0.00-0.02) K/uL Platelet Estimate (Normal) PT 20.4 H (9.0-12.0) Seconds INR 2.0 H (0.9-1.1) Sample Site POC pH (7.35-7.45) POC pCO2 (35-46) mmHg POC pO2 (80-95) mmHg POC HCO3 (19-24) faviola/L POC Total CO2 (24-31) mmol/L POC Base Excess (-9-1.8) faviola/L ABG pH (Temp Correct) (7.35-7.45) ABG pCO2 (Temp Corrct (35-46) mmHg POC ABG pO2 at Pt Temp POC ABG O2 Sat (90-95) % Jimmy Test O2 Delivery Device POC Sodium (135-144) mmol/L Sodium (136-145) mmol/L POC Potassium (3.3-5.0) mmol/L Potassium (3.5-5.1) mmol/L Chloride (98-107) mmol/L Carbon Dioxide (21-32) mmol/L Anion Gap (3-11) BUN (7-18) mg/dl Creatinine (0.6-1.2) mg/dl Est Cr Clr Drug Dosing ml/min Est GFR ( Amer) Est GFR (Non-Af Amer) BUN/Creatinine Ratio (10-20) Glucose (70-99) mg/dl POC Glucose 101 H (70-99) mg/dl Calcium (8.5-10.1) mg/dl Phosphorus (2.5-4.9) mg/dl Magnesium (1.8-2.4) mg/dl Total Bilirubin (0.2-1) mg/dl AST (15-37) U/L ALT (12-78) U/L Alkaline Phosphatase (45-117) U/L Ammonia < 10.0 L (11-32) umol/L Lactate Dehydrogenase (84-246) U/L C-Reactive Protein (0-0.29) mg/dl NT-Pro-B Natriuret Pep (0-1800) pg/ml Total Protein (6.4-8.2) gm/dl Albumin (3.4-5.0) gm/dl Globulin (2.5-4.0) gm/dl Albumin/Globulin Ratio (0.9-2) TSH (0.300-4.500) uIu/ml Random Cortisol mcg/dl Urine Color Urine Appearance (Clear) Urine pH (4.5-7.5) Ur Specific [place] (1.000-1.030) Urine Protein (Negative) Urine Glucose (UA) (Negative) Urine Ketones (Negative) Urine Blood (Negative) Urine Nitrite (Negative) Urine Bilirubin (Negative) Urine Urobilinogen (Negative) Ur Leukocyte Esterase (Negative) Nasal Screen MRSA (PCR) (Negative) Blood Type Antibody Screen 03/29/20 03/29/20 03/29/20 Range/Units 05:00 05:00 01:43 WBC 5.21 (4.8-10.8) K/uL RBC 4.56 (4.2-5.4) M/uL Hgb 12.1 (12.0-16.0) g/dL POC Hgb (12.0-16.0) g/dl Hct 40.0 (37-47) % POC Hct (37-47) % MCV 87.7 (80-100) fL MCH 26.5 (25-34) pg MCHC 30.3 L (32-36) g/dL RDW Std Deviation 62.3 H (36.4-46.3) fL RDW Coeff of Wali 19.4 H (11.5-14.5) % Plt Count 105 L (130-400) K/uL MPV 11.1 H (7.4-10.4) fL Immature Gran % (Auto) 0.2 % Neut % (Auto) 68.1 % Lymph % (Auto) 25.7 % Giles % (Auto) 6.0 % Eos % (Auto) 0.0 % Baso % (Auto) 0.0 % Neut # (Auto) 3.55 (1.4-6.5) K/uL Lymph # (Auto) 1.34 (1.2-3.4) K/uL Giles # (Auto) 0.31 (0.11-0.59) K/uL Eos # (Auto) 0.00 (0-0.5) K/uL Baso # (Auto) 0.00 (0-0.2) K/uL Immature Gran # (Auto) 0.01 (0.00-0.02) K/uL Platelet Estimate Decreased L (Normal) PT (9.0-12.0) Seconds INR (0.9-1.1) Sample Site POC pH (7.35-7.45) POC pCO2 (35-46) mmHg POC pO2 (80-95) mmHg POC HCO3 (19-24) faviola/L POC Total CO2 (24-31) mmol/L POC Base Excess (-9-1.8) faviola/L ABG pH (Temp Correct) (7.35-7.45) ABG pCO2 (Temp Corrct (35-46) mmHg POC ABG pO2 at Pt Temp POC ABG O2 Sat (90-95) % Jimmy Test O2 Delivery Device POC Sodium (135-144) mmol/L Sodium 145 (136-145) mmol/L POC Potassium (3.3-5.0) mmol/L Potassium 4.4 (3.5-5.1) mmol/L Chloride 115 H (98-107) mmol/L Carbon Dioxide 23 (21-32) mmol/L Anion Gap 7.0 (3-11) BUN 34 H (7-18) mg/dl Creatinine 1.23 H (0.6-1.2) mg/dl Est Cr Clr Drug Dosing 27.7 ml/min Est GFR ( Amer) 46.3 Est GFR (Non-Af Amer) 40.0 BUN/Creatinine Ratio 27.3 H (10-20) Glucose 110 H (70-99) mg/dl POC Glucose (70-99) mg/dl Calcium 7.6 L (8.5-10.1) mg/dl Phosphorus 4.0 (2.5-4.9) mg/dl Magnesium 1.9 (1.8-2.4) mg/dl Total Bilirubin 1.2 H (0.2-1) mg/dl AST 17 (15-37) U/L ALT 10 L (12-78) U/L Alkaline Phosphatase 86 (45-117) U/L Ammonia (11-32) umol/L Lactate Dehydrogenase (84-246) U/L C-Reactive Protein (0-0.29) mg/dl NT-Pro-B Natriuret Pep (0-1800) pg/ml Total Protein 6.2 L (6.4-8.2) gm/dl Albumin 3.2 L (3.4-5.0) gm/dl Globulin 3.0 (2.5-4.0) gm/dl Albumin/Globulin Ratio 1.1 (0.9-2) TSH 2.330 (0.300-4.500) uIu/ml Random Cortisol 22.17 mcg/dl Urine Color Urine Appearance (Clear) Urine pH (4.5-7.5) Ur Specific [place] (1.000-1.030) Urine Protein (Negative) Urine Glucose (UA) (Negative) Urine Ketones (Negative) Urine Blood (Negative) Urine Nitrite (Negative) Urine Bilirubin (Negative) Urine Urobilinogen (Negative) Ur Leukocyte Esterase (Negative) Nasal Screen MRSA (PCR) (Negative) Blood Type Antibody Screen 03/29/20 03/29/20 03/29/20 Range/Units 01:43 01:43 01:40 WBC (4.8-10.8) K/uL RBC (4.2-5.4) M/uL Hgb (12.0-16.0) g/dL POC Hgb 13.3 (12.0-16.0) g/dl Hct (37-47) % POC Hct 39 (37-47) % MCV (80-100) fL MCH (25-34) pg MCHC (32-36) g/dL RDW Std Deviation (36.4-46.3) fL RDW Coeff of Wali (11.5-14.5) % Plt Count (130-400) K/uL MPV (7.4-10.4) fL Immature Gran % (Auto) % Neut % (Auto) % Lymph % (Auto) % Giles % (Auto) % Eos % (Auto) % Baso % (Auto) % Neut # (Auto) (1.4-6.5) K/uL Lymph # (Auto) (1.2-3.4) K/uL Giles # (Auto) (0.11-0.59) K/uL Eos # (Auto) (0-0.5) K/uL Baso # (Auto) (0-0.2) K/uL Immature Gran # (Auto) (0.00-0.02) K/uL Platelet Estimate (Normal) PT (9.0-12.0) Seconds INR (0.9-1.1) Sample Site L Radial POC pH 7.29 L (7.35-7.45) POC pCO2 42 (35-46) mmHg POC pO2 74 L (80-95) mmHg POC HCO3 20 (19-24) faviola/L POC Total CO2 21 L (24-31) mmol/L POC Base Excess -6.0 (-9-1.8) faviola/L ABG pH (Temp Correct) 7.291 L (7.35-7.45) ABG pCO2 (Temp Corrct 42 (35-46) mmHg POC ABG pO2 at Pt Temp 73 POC ABG O2 Sat 93.0 (90-95) % Jimmy Test Pass O2 Delivery Device Cannula POC Sodium 145 H (135-144) mmol/L Sodium 144 (136-145) mmol/L POC Potassium 4.2 (3.3-5.0) mmol/L Potassium 4.3 (3.5-5.1) mmol/L Chloride 117 H (98-107) mmol/L Carbon Dioxide 19 L (21-32) mmol/L Anion Gap 8.0 (3-11) BUN 33 H (7-18) mg/dl Creatinine 1.12 (0.6-1.2) mg/dl Est Cr Clr Drug Dosing 30.4 ml/min Est GFR ( Amer) 51.9 Est GFR (Non-Af Amer) 44.8 BUN/Creatinine Ratio 29.6 H (10-20) Glucose 97 (70-99) mg/dl POC Glucose (70-99) mg/dl Calcium 7.8 L (8.5-10.1) mg/dl Phosphorus (2.5-4.9) mg/dl Magnesium (1.8-2.4) mg/dl Total Bilirubin (0.2-1) mg/dl AST (15-37) U/L ALT (12-78) U/L Alkaline Phosphatase (45-117) U/L Ammonia (11-32) umol/L Lactate Dehydrogenase 227 (84-246) U/L C-Reactive Protein 6.00 H (0-0.29) mg/dl NT-Pro-B Natriuret Pep 97105 H (0-1800) pg/ml Total Protein (6.4-8.2) gm/dl Albumin (3.4-5.0) gm/dl Globulin (2.5-4.0) gm/dl Albumin/Globulin Ratio (0.9-2) TSH (0.300-4.500) uIu/ml Random Cortisol mcg/dl Urine Color Urine Appearance (Clear) Urine pH (4.5-7.5) Ur Specific [place] (1.000-1.030) Urine Protein (Negative) Urine Glucose (UA) (Negative) Urine Ketones (Negative) Urine Blood (Negative) Urine Nitrite (Negative) Urine Bilirubin (Negative) Urine Urobilinogen (Negative) Ur Leukocyte Esterase (Negative) Nasal Screen MRSA (PCR) (Negative) Blood Type Antibody Screen 03/29/20 03/29/20 03/28/20 Range/Units 01:37 00:23 22:03 WBC (4.8-10.8) K/uL RBC (4.2-5.4) M/uL Hgb (12.0-16.0) g/dL POC Hgb (12.0-16.0) g/dl Hct (37-47) % POC Hct (37-47) % MCV (80-100) fL MCH (25-34) pg MCHC (32-36) g/dL RDW Std Deviation (36.4-46.3) fL RDW Coeff of Wali (11.5-14.5) % Plt Count (130-400) K/uL MPV (7.4-10.4) fL Immature Gran % (Auto) % Neut % (Auto) % Lymph % (Auto) % Giles % (Auto) % Eos % (Auto) % Baso % (Auto) % Neut # (Auto) (1.4-6.5) K/uL Lymph # (Auto) (1.2-3.4) K/uL Giles # (Auto) (0.11-0.59) K/uL Eos # (Auto) (0-0.5) K/uL Baso # (Auto) (0-0.2) K/uL Immature Gran # (Auto) (0.00-0.02) K/uL Platelet Estimate (Normal) PT (9.0-12.0) Seconds INR (0.9-1.1) Sample Site POC pH (7.35-7.45) POC pCO2 (35-46) mmHg POC pO2 (80-95) mmHg POC HCO3 (19-24) faviola/L POC Total CO2 (24-31) mmol/L POC Base Excess (-9-1.8) faviola/L ABG pH (Temp Correct) (7.35-7.45) ABG pCO2 (Temp Corrct (35-46) mmHg POC ABG pO2 at Pt Temp POC ABG O2 Sat (90-95) % Jimmy Test O2 Delivery Device POC Sodium (135-144) mmol/L Sodium (136-145) mmol/L POC Potassium (3.3-5.0) mmol/L Potassium (3.5-5.1) mmol/L Chloride (98-107) mmol/L Carbon Dioxide (21-32) mmol/L Anion Gap (3-11) BUN (7-18) mg/dl Creatinine (0.6-1.2) mg/dl Est Cr Clr Drug Dosing ml/min Est GFR ( Amer) Est GFR (Non-Af Amer) BUN/Creatinine Ratio (10-20) Glucose (70-99) mg/dl POC Glucose 95 (70-99) mg/dl Calcium (8.5-10.1) mg/dl Phosphorus (2.5-4.9) mg/dl Magnesium (1.8-2.4) mg/dl Total Bilirubin (0.2-1) mg/dl AST (15-37) U/L ALT (12-78) U/L Alkaline Phosphatase (45-117) U/L Ammonia (11-32) umol/L Lactate Dehydrogenase (84-246) U/L C-Reactive Protein (0-0.29) mg/dl NT-Pro-B Natriuret Pep (0-1800) pg/ml Total Protein (6.4-8.2) gm/dl Albumin (3.4-5.0) gm/dl Globulin (2.5-4.0) gm/dl Albumin/Globulin Ratio (0.9-2) TSH (0.300-4.500) uIu/ml Random Cortisol mcg/dl Urine Color Urine Appearance (Clear) Urine pH (4.5-7.5) Ur Specific [place] (1.000-1.030) Urine Protein (Negative) Urine Glucose (UA) (Negative) Urine Ketones (Negative) Urine Blood (Negative) Urine Nitrite (Negative) Urine Bilirubin (Negative) Urine Urobilinogen (Negative) Ur Leukocyte Esterase (Negative) Nasal Screen MRSA (PCR) Negative (Negative) Blood Type O Positive Antibody Screen NEGATIVE 03/28/20 Range/Units 21:31 WBC (4.8-10.8) K/uL RBC (4.2-5.4) M/uL Hgb (12.0-16.0) g/dL POC Hgb (12.0-16.0) g/dl Hct (37-47) % POC Hct (37-47) % MCV (80-100) fL MCH (25-34) pg MCHC (32-36) g/dL RDW Std Deviation (36.4-46.3) fL RDW Coeff of Wali (11.5-14.5) % Plt Count (130-400) K/uL MPV (7.4-10.4) fL Immature Gran % (Auto) % Neut % (Auto) % Lymph % (Auto) % Giles % (Auto) % Eos % (Auto) % Baso % (Auto) % Neut # (Auto) (1.4-6.5) K/uL Lymph # (Auto) (1.2-3.4) K/uL Giles # (Auto) (0.11-0.59) K/uL Eos # (Auto) (0-0.5) K/uL Baso # (Auto) (0-0.2) K/uL Immature Gran # (Auto) (0.00-0.02) K/uL Platelet Estimate (Normal) PT (9.0-12.0) Seconds INR (0.9-1.1) Sample Site POC pH (7.35-7.45) POC pCO2 (35-46) mmHg POC pO2 (80-95) mmHg POC HCO3 (19-24) faviola/L POC Total CO2 (24-31) mmol/L POC Base Excess (-9-1.8) faviola/L ABG pH (Temp Correct) (7.35-7.45) ABG pCO2 (Temp Corrct (35-46) mmHg POC ABG pO2 at Pt Temp POC ABG O2 Sat (90-95) % Jimmy Test O2 Delivery Device POC Sodium (135-144) mmol/L Sodium (136-145) mmol/L POC Potassium (3.3-5.0) mmol/L Potassium (3.5-5.1) mmol/L Chloride (98-107) mmol/L Carbon Dioxide (21-32) mmol/L Anion Gap (3-11) BUN (7-18) mg/dl Creatinine (0.6-1.2) mg/dl Est Cr Clr Drug Dosing ml/min Est GFR ( Amer) Est GFR (Non-Af Amer) BUN/Creatinine Ratio (10-20) Glucose (70-99) mg/dl POC Glucose (70-99) mg/dl Calcium (8.5-10.1) mg/dl Phosphorus (2.5-4.9) mg/dl Magnesium (1.8-2.4) mg/dl Total Bilirubin (0.2-1) mg/dl AST (15-37) U/L ALT (12-78) U/L Alkaline Phosphatase (45-117) U/L Ammonia (11-32) umol/L Lactate Dehydrogenase (84-246) U/L C-Reactive Protein (0-0.29) mg/dl NT-Pro-B Natriuret Pep (0-1800) pg/ml Total Protein (6.4-8.2) gm/dl Albumin (3.4-5.0) gm/dl Globulin (2.5-4.0) gm/dl Albumin/Globulin Ratio (0.9-2) TSH (0.300-4.500) uIu/ml Random Cortisol mcg/dl Urine Color Yellow Urine Appearance Clear (Clear) Urine pH 5.0 (4.5-7.5) Ur Specific [place] 1.017 (1.000-1.030) Urine Protein Negative (Negative) Urine Glucose (UA) Negative (Negative) Urine Ketones Negative (Negative) Urine Blood Negative (Negative) Urine Nitrite Negative (Negative) Urine Bilirubin Negative (Negative) Urine Urobilinogen Negative (Negative) Ur Leukocyte Esterase Negative (Negative) Nasal Screen MRSA (PCR) (Negative) Blood Type Antibody Screen PG Care Time/CCT Total # of Minutes Spent Total Time Spent with Patient: Total time spent is greater than 50% in coordination of care (as documented) at patient's floor/unit and/or counseling patient: Coding Level of Care Code 50110 Subseq Hosp Care Lvl 3 Diagnoses Pneumonia due to COVID-19 virus U07.1; J12.89 Hypoxia R09.02 CAD (coronary artery disease) I25.10 Hypertension I10 Hyperlipidemia E78.5 Gastroesophageal reflux disease K21.9 Depression with anxiety F41.8 Current use of alf anticoagulation Z79.01 History of pulmonary embolism Z86.711 Hypotension I95.9 History of permanent cardiac pacemaker placement Z95.0 Coagulopathy D68.9 CHF (congestive heart failure) I50.9 CKD (chronic kidney disease) stage 3, GFR 30-59 ml/min N18.30 Thrombocytopenia D69.6 Scoliosis M41.9 Insomnia G47.00 DVT prophylaxis Z29.9
[2020-03-29] MEDS ORDERED: PHYTONADIONE 2.5 MG in SODIUM CHLORIDE 0.9% 50 ML IV ONE (17:30)
[2020-03-29] MEDS ORDERED: APIXABAN 5 MG TABLET PO SCH (21:00)
[2020-03-29] MEDS: PANTOprazole 40 MG TAB PO SCH (22:07)
[2020-03-29] MEDS: APIXABAN 5 MG TABLET PO SCH (22:07)
[2020-03-29] MEDS: MIRTAZAPINE TAB 15 MG TAB PO SCH (22:47)
[2020-03-29] MEDS: TEMAZEPAM 15 MG CAPSULE PO SCH (23:00)
[2020-03-30] MEDS: PIPERACILLIN/TAZOBACTAM 3.375 GM in DEXTROSE 5% 100 ML IV SCH ×4 (01:15→23:57)
[2020-03-30 06:43] LABS: Hematocrit (blood only) 41.1 % (37-47); Hemoglobin 12.3 g/dL (12.0-16.0); Mean Corpuscular Hemoglobin 26.1 pg (25-34); Mean Corpuscular Hgb Conc 29.9 g/dL (32-36); Mean Corpuscular Volume 87.1 fL (80-100); Mean Platelet Volume 11.5 fL (7.4-10.4); Platelet Count 170 K/uL (130-400); RDW Coefficient of Variation 19.6 % (11.5-14.5); RDW Standard Deviation 62.4 fL (36.4-46.3); Red Blood Count 4.72 M/uL (4.2-5.4); White Blood Count 9.05 K/uL (4.8-10.8)
[2020-03-30 06:44] LABS: Echinocytes 2+; Immature Granulocytes # (auto) 0.03 K/uL (0.00-0.02); Immature Granulocytes % (auto) 0.3 %; Lymphocytes # (auto) 2.18 K/uL (1.2-3.4); Lymphocytes % (auto) 24.1 %; Monocytes # (auto) 0.67 K/uL (0.11-0.59); Monocytes % (auto) 7.4 %; Neutrophils # (auto) 6.17 K/uL (1.4-6.5); Neutrophils % (auto) 68.2 %
[2020-03-30 06:59] LABS: Albumin Level 2.8 gm/dl (3.4-5.0); BUN Creatinine Ratio 32.7 (10-20); C Reactive Protein 3.55 mg/dl (0-0.29); Calcium 7.8 mg/dl (8.5-10.1); Creatinine Clr Calc Pharmacy 28.8 ml/min; Est GFR (African American) 48.7; Magnesium 2.1 mg/dl (1.8-2.4); Potassium 4.4 mmol/L (3.5-5.1)
[2020-03-30 07:02] LABS: Albumin Globulin Ratio 0.9 (0.9-2); Bilirubin,Total 0.9 mg/dl (0.2-1); Globulin 3.2 gm/dl (2.5-4.0); Phosphorus 3.9 mg/dl (2.5-4.9)
--- NOTE | 2020-03-30 07:52 | XRay Report ---
XR chest 1V portable CLINICAL HISTORY: Pneumonia/ COVID19 COMPARISON STUDY: Chest radiograph March 29, 2020. FINDINGS: Dual lead left subclavian pacemaker is in place. Note is made of cardiomegaly without evide nce for pulmonary edema. Left basilar consolidation persists with a small left pleural effusion. Ther e is no pneumothorax. IMPRESSION: 1. Persistent left basilar opacity which favors pneumonia. 2. Small left pleural effusion. ACT 112: Negative or not required by law. Electronically signed by: Eugene Casper M.D. 03/30/2020 7:51 AM
[2020-03-30 08:20] LABS: D Dimer 430 ug/L FEU (0-500); INR 1.5 (0.9-1.1); Partial Thromboplastin Ratio 1.5; Partial Thromboplastin Time 43.1 Seconds (21.0-31.0); Prothrombin Time 15.4 Seconds (9.0-12.0)
[2020-03-30] MEDS ORDERED: FUROSEMIDE 20 MG TAB PO SCH (09:00)
[2020-03-30] MEDS: ATORVASTATIN 10 MG TAB PO SCH (09:02)
[2020-03-30] MEDS: APIXABAN 5 MG TABLET PO SCH ×2 (09:02→21:23)
[2020-03-30] MEDS: PANTOprazole 40 MG TAB PO SCH ×2 (09:02→21:23)
[2020-03-30] MEDS: ESCITALOPRAM OXALATE 10 MG TAB PO SCH (09:02)
[2020-03-30] MEDS: ATENOLOL 25 MG TABLET PO SCH (09:03)
[2020-03-30] MEDS: dexAMETHasone 6 MG in SYRINGE 0 ML IV SCH (09:03)
[2020-03-30] MEDS: D5W AND 1/2NSS 1,000 ML IV SCH ×2 (10:09→23:57)
[2020-03-30] MEDS: ONDANSETRON INJ 2 MG/ML 2 ML VIAL IV PRN (15:46)
[2020-03-30] MEDS: TEMAZEPAM 15 MG CAPSULE PO SCH (21:23)
[2020-03-30] MEDS: GABAPENTIN 100 MG CAP PO SCH (21:23)
[2020-03-30] MEDS: MIRTAZAPINE TAB 15 MG TAB PO SCH (21:23)
--- NOTE | 2020-03-30 22:42 | Hospitalist Progress Note ---
Date of Service March 30, 2020 Assessment & Plan (1) Pneumonia due to COVID-19 virus: Initially diagnosed on 03/26/2020 while at [facility]. With severe disease evidenced by hypoxia and requirement of oxygen with pneumonia on chest x-ray. Also with acute metabolic encephalopathy resulting from acute illness. Encephalopathy seems to be significantly improved She remains on 3 L nasal cannula to keep pulse ox greater than 92% -Continue dexamethasone 6 mg IV once daily x10-day course-started on 03/28 -Continue IV Zosyn in case of superimposed bacterial pneumonia and recent hospitalization for pneumonia at [facility] 2 weeks ago MRSA swab was negative and IV vancomycin was discontinued -Checked procalcitonin which was negative-consider discontinuing IV Zosyn if blood cultures remain no growth by tomorrow -She did receive 1 unit of convalescent plasma Pulmonary recommends against use of Remdesivir due to borderline creatinine clearance unless renal function rapidly improves-confirmed with pharmacy today that her creatinine clearance is still to low to receive Remdesivir -Follow CBC, CMP, d-dimer, ferritin, LDH, CRP, ESR, PT/INR in the morning- markers of inflammation seem to be improving -Zofran as needed for nausea (2) Hypoxia: Secondary to COVID-19 pneumonia as above No chronic lung issues except does have scoliosis which may be restrictive -Continue supplemental O2 and wean off as able to keep pulse ox greater than 90- 92% Treating COVID-19 pneumonia as above (3) CAD (coronary artery disease): With a remote history of [place] and stents placed in both 2002 and 2004. [address] Dr. Tinoco, cardiology in [place] Troponin upon admission was 0.044 ECG shows limb lead reversal and a right bundle branch block but no acute ischemia. The patient denies any chest pain. I do not see aspirin on her home medication list-we will need to find out if there is a reason she is not on an antiplatelet-will discuss with her daughter -Continue home apixaban which is actually for history of PE -Continue home atenolol and restart home isosorbide as blood pressures are now much improved (4) Hypertension: With hypotension requiring ICU admission. Now improved status post IV fluid resuscitation as well as administration of IV albumin Blood pressures are normal and is back on home atenolol -Restarting home isosorbide -Hold Lasix for hypernatremia (5) Hyperlipidemia: Continue home atorvastatin (6) Gastroesophageal reflux disease: Continue home PPI twice daily (7) Depression with anxiety: Mental status is improved and can take p.o. -Continue home Lexapro, mirtazapine and temazepam to avoid withdrawal from benzos She also has lorazepam listed as scheduled 4 times daily. Her daughter confirms that the patient does take this at least 3 times a day every day-we will hold off on making it scheduled until her mental status continues to improve back to normal. 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 Gave vitamin K 2.5 mg IV x1 and INR down to 1.5 -Continue home apixaban 5 mg p.o. twice daily to prevent VTE especially in the setting of COVID-19 (9) History of pulmonary embolism: As above (10) Hypotension: As noted above (11) History of permanent cardiac pacemaker placement: Placed for history of syncope-as per daughter. Sounds like symptomatic bradycardia Pacing on telemetry Okay to discontinue from telemetry (12) Coagulopathy: As noted above Vitamin K given and INR has significantly improved down to 1.5 Follow PT/INR in the morning and consider giving more IV vitamin K if needed Okay to continue home Eliquis (13) CHF (congestive heart failure): Noted in history, but daughter is unaware of this diagnosis. Cannot obtain echo in the setting of COVID positive patient proBNP is significantly elevated at 25,000 upon admission Does have a small left pleural effusion but may be parapneumonic She is on Lasix but no guideline directed therapy for systolic CHF. Most likely chronic diastolic CHF. She is not volume overloaded at this time She received a dose of p.o. Lasix this morning, however she is not taking much by mouth at all today due to nausea and has some mild hypernatremia-we will hold Lasix for tomorrow We will follow daily weights and strict I's and O's (14) CKD (chronic kidney disease) stage 3, GFR 30-59 ml/min: Creatinine minimally elevated and unclear baseline on admission Creatinine is now improved with IV fluid hydration done 1.18 today -Avoid nephrotoxins -renally dose meds when appropriate -follow BMP (15) Thrombocytopenia: Upon admission platelets mildly low at 106, likely secondary to COVID-19 Platelets are now improving today Follow CBC (16) Scoliosis: Obvious on examination and causes chronic back pain as per her daughter Continue home gabapentin for pain (17) Insomnia: Continue home temazepam (18) Hypernatremia: Sodium up to 147 today after receiving normal saline early in admission Start D5 half-normal saline at 80 mL's per hour and recheck BMP in the morning (19) DVT prophylaxis: Apixaban Disposition-stable for downgrade out of the PCU to medical/surgical Discussed CODE STATUS with daughter on the phone at length as patient is with encephalopathy upon admission. She reports that her mom wanted to be a DNR/DNI since being at the half-way (as per half-way records), however in past conversations prior to recent hospitalization and placement in half-way, she had stated she wanted to be a full code. Daughter now understands that patient is realizing that she does not want to live if she is suffering and very sick. Therefore, she will be changed to a DNR/DNI Admission and Anticipated Discharge Date Admission Date: March 28, 2020 Subjective Patient reports feeling okay today. She does report feeling a bit nauseated. She knows she is in the hospital and seems less confused. Denies chest pain or shortness of breath but admits to having a cough. She is not eating much today. She feels that she is too weak to get out of bed to even a bedside commode and does not want the Ralph catheter removed. Telemetry with normal sinus rhythm and first-degree AV block with rates in the 60s to 90s, paced at times. Review of Systems Review of Systems: All systems reviewed & are unremarkable except as noted in HPI & below Physical Exam Constitutional: + thin; no acute distress and not ill appearing Eyes: + anicteric sclerae Neck: trachea midline, no thyromegaly Respiratory: normal respiratory effort (With nasal cannula in place); no cough Auscultation: + crackles (At the bases bilaterally); no rhonchi and no wheezes Cardiovascular: RRR, no murmur, no edema Chest (Breasts): Chest: normal inspection of chest Gastrointestinal (Abdomen): normal bowel sounds, soft, nontender, no hepatosplenomegaly Musculoskeletal: Extremities: extremities normal to inspection; no cyanosis and no clubbing Skin: no rashes, warm and dry Neurologic: moves all extremities and awake; no focal motor deficits Psychiatric: Orientation: alert, oriented to person, oriented to place and cooperative; + not oriented to time Eye Contact: good eye contact Speech: normal rate/rhythm/volume of speech Affect: euthymic affect Genitourinary: Ralph catheter in place draining dark yellow urine Lymphatic: no lymphedema Results & Data Results & Data ([facility]) Vital Signs (Past 12 Hours) Vital Signs Temp Pulse Pulse Resp BP BP Pulse Ox 03/30/20 19:31 36.8 C 88 23 139/86 91 03/30/20 18:01 68 93 03/30/20 18:00 69 116/69 93 03/30/20 17:00 79 19 109/75 95 03/30/20 16:01 65 17 93 03/30/20 16:00 36.6 C 65 18 113/65 93 03/30/20 15:32 75 21 111/79 94 03/30/20 15:00 69 22 108/65 92 03/30/20 14:01 62 17 91 03/30/20 14:00 64 18 107/59 L 91 03/30/20 13:00 68 18 121/62 93 03/30/20 12:00 36.6 C 73 67 18 115/68 115/68 93 03/30/20 11:02 36.7 C 89 30 H 130/85 92 03/30/20 11:00 90 22 130/85 87 L Pulse Ox 03/30/20 19:31 03/30/20 18:01 03/30/20 18:00 03/30/20 17:00 03/30/20 16:01 03/30/20 16:00 95 03/30/20 15:32 03/30/20 15:00 03/30/20 14:01 03/30/20 14:00 03/30/20 13:00 03/30/20 12:00 03/30/20 11:02 03/30/20 11:00 Laboratory Results 03/30/20 03/30/20 03/30/20 Range/Units 07:40 07:40 05:44 WBC 9.05 (4.8-10.8) K/uL RBC 4.72 (4.2-5.4) M/uL Hgb 12.3 (12.0-16.0) g/dL Hct 41.1 (37-47) % MCV 87.1 (80-100) fL MCH 26.1 (25-34) pg MCHC 29.9 L (32-36) g/dL RDW Std Deviation 62.4 H (36.4-46.3) fL RDW Coeff of Wali 19.6 H (11.5-14.5) % Plt Count 170 D (130-400) K/uL MPV 11.5 H (7.4-10.4) fL Immature Gran % (Auto) 0.3 % Neut % (Auto) 68.2 % Lymph % (Auto) 24.1 % Love % (Auto) 7.4 % Eos % (Auto) 0.0 % Baso % (Auto) 0.0 % Neut # (Auto) 6.17 (1.4-6.5) K/uL Lymph # (Auto) 2.18 (1.2-3.4) K/uL Love # (Auto) 0.67 H (0.11-0.59) K/uL Eos # (Auto) 0.00 (0-0.5) K/uL Baso # (Auto) 0.00 (0-0.2) K/uL Immature Gran # (Auto) 0.03 H (0.00-0.02) K/uL Echinocytes 2+ ESR (0-21) mm/hr PT 15.4 H INR 1.5 H APTT 43.1 H PTT Ratio 1.5 D-Dimer 430 Sodium (136-145) mmol/L Potassium (3.5-5.1) mmol/L Chloride (98-107) mmol/L Carbon Dioxide (21-32) mmol/L Anion Gap (3-11) BUN (7-18) mg/dl Creatinine (0.6-1.2) mg/dl Est Cr Clr Drug Dosing ml/min Est GFR ( Amer) Est GFR (Non-Af Amer) BUN/Creatinine Ratio (10-20) Glucose (70-99) mg/dl Calcium (8.5-10.1) mg/dl Phosphorus (2.5-4.9) mg/dl Magnesium (1.8-2.4) mg/dl Ferritin (8-388) ng/ml Total Bilirubin (0.2-1) mg/dl AST (15-37) U/L ALT (12-78) U/L Alkaline Phosphatase (45-117) U/L Lactate Dehydrogenase (84-246) U/L C-Reactive Protein (0-0.29) mg/dl Total Protein (6.4-8.2) gm/dl Albumin (3.4-5.0) gm/dl Globulin (2.5-4.0) gm/dl Albumin/Globulin Ratio (0.9-2) Procalcitonin 0.08 03/30/20 03/30/20 03/30/20 Range/Units 05:44 05:44 05:44 WBC (4.8-10.8) K/uL RBC (4.2-5.4) M/uL Hgb (12.0-16.0) g/dL Hct (37-47) % MCV (80-100) fL MCH (25-34) pg MCHC (32-36) g/dL RDW Std Deviation (36.4-46.3) fL RDW Coeff of Wali (11.5-14.5) % Plt Count (130-400) K/uL MPV (7.4-10.4) fL Immature Gran % (Auto) % Neut % (Auto) % Lymph % (Auto) % Love % (Auto) % Eos % (Auto) % Baso % (Auto) % Neut # (Auto) (1.4-6.5) K/uL Lymph # (Auto) (1.2-3.4) K/uL Love # (Auto) (0.11-0.59) K/uL Eos # (Auto) (0-0.5) K/uL Baso # (Auto) (0-0.2) K/uL Immature Gran # (Auto) (0.00-0.02) K/uL Echinocytes ESR (0-21) mm/hr PT INR APTT PTT Ratio D-Dimer Sodium 147 H (136-145) mmol/L Potassium 4.4 (3.5-5.1) mmol/L Chloride 117 H (98-107) mmol/L Carbon Dioxide 23 (21-32) mmol/L Anion Gap 7.0 (3-11) BUN 39 H (7-18) mg/dl Creatinine 1.18 (0.6-1.2) mg/dl Est Cr Clr Drug Dosing 28.8 ml/min Est GFR ( Amer) 48.7 Est GFR (Non-Af Amer) 42.0 BUN/Creatinine Ratio 32.7 H (10-20) Glucose 112 H (70-99) mg/dl Calcium 7.8 L (8.5-10.1) mg/dl Phosphorus 3.9 (2.5-4.9) mg/dl Magnesium 2.1 (1.8-2.4) mg/dl Ferritin 81.0 (8-388) ng/ml Total Bilirubin 0.9 (0.2-1) mg/dl AST 20 (15-37) U/L ALT 11 L (12-78) U/L Alkaline Phosphatase 81 (45-117) U/L Lactate Dehydrogenase 228 (84-246) U/L C-Reactive Protein 3.55 H (0-0.29) mg/dl Total Protein 6.0 L (6.4-8.2) gm/dl Albumin 2.8 L (3.4-5.0) gm/dl Globulin 3.2 (2.5-4.0) gm/dl Albumin/Globulin Ratio 0.9 (0.9-2) Procalcitonin Cancelled 03/30/20 03/30/20 Range/Units 05:44 05:44 WBC (4.8-10.8) K/uL RBC (4.2-5.4) M/uL Hgb (12.0-16.0) g/dL Hct (37-47) % MCV (80-100) fL MCH (25-34) pg MCHC (32-36) g/dL RDW Std Deviation (36.4-46.3) fL RDW Coeff of Wali (11.5-14.5) % Plt Count (130-400) K/uL MPV (7.4-10.4) fL Immature Gran % (Auto) % Neut % (Auto) % Lymph % (Auto) % Love % (Auto) % Eos % (Auto) % Baso % (Auto) % Neut # (Auto) (1.4-6.5) K/uL Lymph # (Auto) (1.2-3.4) K/uL Love # (Auto) (0.11-0.59) K/uL Eos # (Auto) (0-0.5) K/uL Baso # (Auto) (0-0.2) K/uL Immature Gran # (Auto) (0.00-0.02) K/uL Echinocytes ESR 2 (0-21) mm/hr PT Cancelled INR Cancelled APTT Cancelled PTT Ratio Cancelled D-Dimer Cancelled Sodium (136-145) mmol/L Potassium (3.5-5.1) mmol/L Chloride (98-107) mmol/L Carbon Dioxide (21-32) mmol/L Anion Gap (3-11) BUN (7-18) mg/dl Creatinine (0.6-1.2) mg/dl Est Cr Clr Drug Dosing ml/min Est GFR ( Amer) Est GFR (Non-Af Amer) BUN/Creatinine Ratio (10-20) Glucose (70-99) mg/dl Calcium (8.5-10.1) mg/dl Phosphorus (2.5-4.9) mg/dl Magnesium (1.8-2.4) mg/dl Ferritin (8-388) ng/ml Total Bilirubin (0.2-1) mg/dl AST (15-37) U/L ALT (12-78) U/L Alkaline Phosphatase (45-117) U/L Lactate Dehydrogenase (84-246) U/L C-Reactive Protein (0-0.29) mg/dl Total Protein (6.4-8.2) gm/dl Albumin (3.4-5.0) gm/dl Globulin (2.5-4.0) gm/dl Albumin/Globulin Ratio (0.9-2) Procalcitonin PG Care Time/CCT Total # of Minutes Spent Total Time Spent with Patient: Total time spent is greater than 50% in coordination of care (as documented) at patient's floor/unit and/or counseling patient: Coding Level of Care Code 63775 Subseq Hosp Care Lvl 3 Diagnoses Pneumonia due to COVID-19 virus U07.1; J12.89 Hypoxia R09.02 CAD (coronary artery disease) I25.10 Hypertension I10 Hyperlipidemia E78.5 Gastroesophageal reflux disease K21.9 Depression with anxiety F41.8 Current use of extermination supervisor anticoagulation Z79.01 History of pulmonary embolism Z86.711 Hypotension I95.9 History of permanent cardiac pacemaker placement Z95.0 Coagulopathy D68.9 CHF (congestive heart failure) I50.9 CKD (chronic kidney disease) stage 3, GFR 30-59 ml/min N18.30 Thrombocytopenia D69.6 Scoliosis M41.9 Insomnia G47.00 Hypernatremia E87.0 DVT prophylaxis Z29.9
[2020-03-31 06:57] LABS: Hematocrit (blood only) 38.1 % (37-47); Hemoglobin 11.5 g/dL (12.0-16.0); Immature Granulocytes # (auto) 0.01 K/uL (0.00-0.02); Immature Granulocytes % (auto) 0.1 %; Lymphocytes # (auto) 1.35 K/uL (1.2-3.4); Lymphocytes % (auto) 17.2 %; Mean Corpuscular Hemoglobin 26.1 pg (25-34); Mean Corpuscular Hgb Conc 30.2 g/dL (32-36); Mean Corpuscular Volume 86.6 fL (80-100); Mean Platelet Volume 10.3 fL (7.4-10.4); Monocytes % (auto) 6.4 %; Neutrophils # (auto) 6.01 K/uL (1.4-6.5); Neutrophils % (auto) 76.3 %; Platelet Count 149 K/uL (130-400); RDW Coefficient of Variation 19.5 % (11.5-14.5); RDW Standard Deviation 61.9 fL (36.4-46.3); White Blood Count 7.87 K/uL (4.8-10.8)
[2020-03-31 07:11] LABS: INR 1.4 (0.9-1.1); Prothrombin Time 14.4 Seconds (9.0-12.0)
[2020-03-31 07:27] LABS: Albumin Level 2.5 gm/dl (3.4-5.0); BUN Creatinine Ratio 31.6 (10-20); C Reactive Protein 1.78 mg/dl (0-0.29); Calcium 7.9 mg/dl (8.5-10.1); Creatinine Clr Calc Pharmacy 31.8 ml/min; Est GFR (African American) 49.7; Est GFR (Non-African American) 42.9; Potassium 3.7 mmol/L (3.5-5.1)
[2020-03-31 07:31] LABS: Albumin Globulin Ratio 0.8 (0.9-2); Bilirubin,Total 0.8 mg/dl (0.2-1); Ferritin 56.9 ng/ml (8-388); Phosphorus 2.8 mg/dl (2.5-4.9); Total Protein 5.5 gm/dl (6.4-8.2)
[2020-03-31 08:10] LABS: D Dimer 540 ug/L FEU (0-500)
--- NOTE | 2020-03-31 08:35 | Hospitalist Progress Note ---
Date of Service March 31, 2020 Assessment & Plan (1) Pneumonia due to COVID-19 virus: Initially diagnosed on 03/26/2020 while at [facility]. With severe disease evidenced by hypoxia and requirement of oxygen with pneumonia on chest x-ray. Also with acute metabolic encephalopathy resulting from acute illness. Encephalopathy seems to be significantly improved She remains on 2-3 L nasal cannula to keep pulse ox greater than 92% -Continue dexamethasone 6 mg IV once daily x10-day course-started on 03/28 -Add on Pepcid to her PPI for extra GI protection in the setting of steroid use and she is having nausea and GI upset -Continue on IV Zosyn in case of superimposed bacterial pneumonia and recent hospitalization for pneumonia at [facility] 2 weeks ago and with coarse cough and more lobar appearing pneumonia MRSA swab was negative and IV vancomycin was discontinued Blood cultures remain no growth and pro calcitonin was negative-consider de- escalation of antibiotics in another day -She did receive 1 unit of convalescent plasma Pulmonary recommends against use of Remdesivir due to borderline creatinine clearance unless renal function rapidly improves-confirmed with pharmacy that her creatinine clearance was too low to receive Remdesivir Creatinine clearance is now slightly above 30, however she is fairly far out in the course of her illness and unclear if would benefit from Remdesivir -Follow CBC, CMP, d-dimer, ferritin, LDH, CRP, ESR, PT/INR in the morning- markers of inflammation seem to be improving -Zofran as needed for nausea (2) Hypoxia: Secondary to COVID-19 pneumonia as above No chronic lung issues except does have scoliosis which may be restrictive -Continue supplemental O2 and wean off as able to keep pulse ox greater than 90- 92% Treating COVID-19 pneumonia as above (3) CAD (coronary artery disease): With a remote history of [place] and stents placed in both 2002 and 2004. [address] Dr. Tinoco, cardiology in [place] Troponin upon admission was 0.044 ECG shows limb lead reversal and a right bundle branch block but no acute ischemia. The patient denies any chest pain. I do not see aspirin on her home medication list-we will need to find out if there is a reason she is not on an antiplatelet-will discuss with her daughter -Continue home apixaban which is actually for history of PE -Continue home atenolol and isosorbide as blood pressures are now much improved (4) Hypertension: With hypotension requiring ICU admission. Now improved status post IV fluid resuscitation as well as administration of IV albumin Blood pressures are normal and is back on home atenolol and isosorbide -Hold Lasix for hypernatremia (5) Hyperlipidemia: Continue home atorvastatin (6) Gastroesophageal reflux disease: Continue home PPI twice daily (7) Depression with anxiety: Mental status is improved and can take p.o. -Continue home Lexapro, mirtazapine and temazepam to avoid withdrawal from benzos She also has lorazepam listed as scheduled 4 times daily. Her daughter confirms that the patient does take this at least 3 times a day every day Will offer her a dose now given significant anxiety regarding being in the hospital (8) Current use of retirement anticoagulation: Discussed with her daughter on the phone-she is on apixaban for history of pulmonary embolism INR 2.4 upon admission and PTT also elevated-this may be secondary to nutritional deficiency/vitamin K deficiency. Gave vitamin K 2.5 mg IV x1 and INR down to 1.4 -Continue home apixaban 5 mg p.o. twice daily to prevent VTE especially in the setting of COVID-19 (9) History of pulmonary embolism: As above (10) Hypotension: As noted above (11) History of permanent cardiac pacemaker placement: Placed for history of syncope-as per daughter. Sounds like symptomatic bradycardia Pacing on telemetry have since discontinued from telemetry (12) Coagulopathy: As noted above Vitamin K given and INR has significantly improved down to 1.4 -will give another dose of Vit K 2.5mg IV x 1 now Okay to continue home Eliquis (13) CHF (congestive heart failure): Noted in history, but daughter is unaware of this diagnosis. Cannot obtain echo in the setting of COVID positive patient proBNP is significantly elevated at 25,000 upon admission Does have a small left pleural effusion but may be parapneumonic She is on Lasix but no guideline directed therapy for systolic CHF. Most likely chronic diastolic CHF. She is not volume overloaded at this time She received a dose of p.o. Lasix on AM of 03/30 but held after that for hypernatremia and dehydration -received IVFs and now dehydration improved -continue to hold Lasix and reassess for need for this each day We will follow daily weights and strict I's and O's (14) CKD (chronic kidney disease) stage 3, GFR 30-59 ml/min: Creatinine minimally elevated and unclear baseline on admission Creatinine is now improved with IV fluid hydration done 1.16 today -Avoid nephrotoxins -renally dose meds when appropriate -follow BMP -dc IVFs (15) Thrombocytopenia: Upon admission platelets mildly low at 106, likely secondary to COVID-19 Platelets are now normal Follow CBC (16) Scoliosis: Obvious on examination and causes chronic back pain as per her daughter Continue home gabapentin for pain (17) Insomnia: Continue home temazepam (18) Hypernatremia: now resolved with changing fluids to D5 1/2 NS dc IVFs encouraged po intake, antiemetics, antacids with anorexia due to COVID-19 (19) DVT prophylaxis: Apixaban Disposition-continued stay on medical/surgical Pt anxious for discharge to home but would require 24/7 care. Will discuss with daughter Discussed CODE STATUS with daughter on the phone at length as patient is with encephalopathy upon admission. She reports that her mom wanted to be a DNR/DNI since being at the snf (as per snf records), however in past conversations prior to recent hospitalization and placement in snf, she had stated she wanted to be a full code. Daughter now understands that patient is realizing that she does not want to live if she is suffering and very sick. Therefore, she will be changed to a DNR/DNI Admission and Anticipated Discharge Date Admission Date: March 28, 2020 Subjective Patient asked me several times if she could just go home. She reports that she has a steamer blocker that could just wear a mask to take care of her. She is with a very coarse cough still. Remains in oxygen at 2 L but is not feeling short of breath. Denies chest pains. She still has a very low appetite and earlier in the day reported upset stomach or "not feeling well" to the nurse. She states that she is tired of being in the bed and would like to get out of bed and is willing to get her Ralph catheter out and get out of bed to a chair today. Review of Systems Review of Systems: All systems reviewed & are unremarkable except as noted in HPI & below Physical Exam Constitutional: + thin; no acute distress and not ill appearing Eyes: + anicteric sclerae Neck: trachea midline, no thyromegaly Respiratory: normal respiratory effort (With nasal cannula in place); no cough Auscultation: + crackles (At the bases bilaterally) and + rhonchi (At left base); no wheezes Cardiovascular: RRR, no murmur, no edema Chest (Breasts): Chest: normal inspection of chest Gastrointestinal (Abdomen): normal bowel sounds, soft, nontender, no hepatosplenomegaly Musculoskeletal: Extremities: extremities normal to inspection; no cyanosis and no clubbing Skin: no rashes, warm and dry Neurologic: moves all extremities and awake; no focal motor deficits Psychiatric: Orientation: alert, oriented to person, oriented to place and cooperative Eye Contact: good eye contact Speech: normal rate/rhythm/volume of speech Affect: + anxious affect Lymphatic: no lymphedema Results & Data Results & Data ([facility]) Vital Signs (Past 12 Hours) Vital Signs Temp Pulse Resp BP Pulse Ox 03/31/20 04:39 36.5 C 60 16 127/71 95 03/30/20 23:54 60 16 101/57 L 95 Laboratory Results 03/31/20 03/31/20 03/31/20 Range/Units 05:45 05:45 05:45 WBC (4.8-10.8) K/uL RBC (4.2-5.4) M/uL Hgb (12.0-16.0) g/dL Hct (37-47) % MCV (80-100) fL MCH (25-34) pg MCHC (32-36) g/dL RDW Std Deviation (36.4-46.3) fL RDW Coeff of Wali (11.5-14.5) % Plt Count (130-400) K/uL MPV (7.4-10.4) fL Immature Gran % (Auto) % Neut % (Auto) % Lymph % (Auto) % [place] % (Auto) % Eos % (Auto) % Baso % (Auto) % Neut # (Auto) (1.4-6.5) K/uL Lymph # (Auto) (1.2-3.4) K/uL [place] # (Auto) (0.11-0.59) K/uL Eos # (Auto) (0-0.5) K/uL Baso # (Auto) (0-0.2) K/uL Immature Gran # (Auto) (0.00-0.02) K/uL ESR 2 (0-21) mm/hr PT 14.4 H (9.0-12.0) Seconds INR 1.4 H (0.9-1.1) D-Dimer 540 H* (0-500) ug/L FEU Sodium (136-145) mmol/L Potassium (3.5-5.1) mmol/L Chloride (98-107) mmol/L Carbon Dioxide (21-32) mmol/L Anion Gap (3-11) BUN (7-18) mg/dl Creatinine (0.6-1.2) mg/dl Est Cr Clr Drug Dosing ml/min Est GFR ( Amer) Est GFR (Non-Af Amer) BUN/Creatinine Ratio (10-20) Glucose (70-99) mg/dl Calcium (8.5-10.1) mg/dl Phosphorus (2.5-4.9) mg/dl Magnesium (1.8-2.4) mg/dl Ferritin (8-388) ng/ml Total Bilirubin (0.2-1) mg/dl AST (15-37) U/L ALT (12-78) U/L Alkaline Phosphatase (45-117) U/L Lactate Dehydrogenase 195 (84-246) U/L Total Creatine Kinase (26-192) U/L C-Reactive Protein (0-0.29) mg/dl Total Protein (6.4-8.2) gm/dl Albumin (3.4-5.0) gm/dl Globulin (2.5-4.0) gm/dl Albumin/Globulin Ratio (0.9-2) 03/31/20 03/31/20 Range/Units 05:45 05:45 WBC 7.87 (4.8-10.8) K/uL RBC 4.40 (4.2-5.4) M/uL Hgb 11.5 L (12.0-16.0) g/dL Hct 38.1 (37-47) % MCV 86.6 (80-100) fL MCH 26.1 (25-34) pg MCHC 30.2 L (32-36) g/dL RDW Std Deviation 61.9 H (36.4-46.3) fL RDW Coeff of Wali 19.5 H (11.5-14.5) % Plt Count 149 (130-400) K/uL MPV 10.3 (7.4-10.4) fL Immature Gran % (Auto) 0.1 % Neut % (Auto) 76.3 % Lymph % (Auto) 17.2 % [place] % (Auto) 6.4 % Eos % (Auto) 0.0 % Baso % (Auto) 0.0 % Neut # (Auto) 6.01 (1.4-6.5) K/uL Lymph # (Auto) 1.35 (1.2-3.4) K/uL [place] # (Auto) 0.50 (0.11-0.59) K/uL Eos # (Auto) 0.00 (0-0.5) K/uL Baso # (Auto) 0.00 (0-0.2) K/uL Immature Gran # (Auto) 0.01 (0.00-0.02) K/uL ESR (0-21) mm/hr PT (9.0-12.0) Seconds INR (0.9-1.1) D-Dimer (0-500) ug/L FEU Sodium 144 (136-145) mmol/L Potassium 3.7 D (3.5-5.1) mmol/L Chloride 113 H (98-107) mmol/L Carbon Dioxide 25 (21-32) mmol/L Anion Gap 6.0 (3-11) BUN 37 H (7-18) mg/dl Creatinine 1.16 (0.6-1.2) mg/dl Est Cr Clr Drug Dosing 31.8 ml/min Est GFR ( Amer) 49.7 Est GFR (Non-Af Amer) 42.9 BUN/Creatinine Ratio 31.6 H (10-20) Glucose 158 H (70-99) mg/dl Calcium 7.9 L (8.5-10.1) mg/dl Phosphorus 2.8 D (2.5-4.9) mg/dl Magnesium 2.0 (1.8-2.4) mg/dl Ferritin 56.9 (8-388) ng/ml Total Bilirubin 0.8 (0.2-1) mg/dl AST 19 (15-37) U/L ALT 14 (12-78) U/L Alkaline Phosphatase 72 (45-117) U/L Lactate Dehydrogenase (84-246) U/L Total Creatine Kinase 23 L (26-192) U/L C-Reactive Protein 1.78 H (0-0.29) mg/dl Total Protein 5.5 L (6.4-8.2) gm/dl Albumin 2.5 L (3.4-5.0) gm/dl Globulin 3.0 (2.5-4.0) gm/dl Albumin/Globulin Ratio 0.8 L (0.9-2) Blood cultures no growth to date PG Care Time/CCT Total # of Minutes Spent Total Time Spent with Patient: Total time spent is greater than 50% in coordination of care (as documented) at patient's floor/unit and/or counseling patient: Coding Level of Care Code 73415 Subseq Hosp Care Lvl 3 Diagnoses Pneumonia due to COVID-19 virus U07.1; J12.89 Hypoxia R09.02 CAD (coronary artery disease) I25.10 Hypertension I10 Hyperlipidemia E78.5 Gastroesophageal reflux disease K21.9 Depression with anxiety F41.8 Current use of retirement anticoagulation Z79.01 History of pulmonary embolism Z86.711 Hypotension I95.9 History of permanent cardiac pacemaker placement Z95.0 Coagulopathy D68.9 CHF (congestive heart failure) I50.9 CKD (chronic kidney disease) stage 3, GFR 30-59 ml/min N18.30 Thrombocytopenia D69.6 Scoliosis M41.9 Insomnia G47.00 Hypernatremia E87.0 DVT prophylaxis Z29.9
[2020-03-31] MEDS: PIPERACILLIN/TAZOBACTAM 3.375 GM in DEXTROSE 5% 100 ML IV SCH ×2 (08:56→15:48)
[2020-03-31] MEDS: APIXABAN 5 MG TABLET PO SCH ×2 (08:59→20:37)
[2020-03-31] MEDS: ISOSORBIDE MONO EXTENDED REL 30 MG TABCR PO SCH (08:59)
[2020-03-31] MEDS: ESCITALOPRAM OXALATE 10 MG TAB PO SCH (08:59)
[2020-03-31] MEDS ORDERED: PNEUMOCOCCAL POLYSACCHARIDES 25 MCG/0.5 ML VIAL/SYR IM ONE (09:00)
[2020-03-31] MEDS: ATORVASTATIN 10 MG TAB PO SCH (09:00)
[2020-03-31] MEDS: ATENOLOL 25 MG TABLET PO SCH (09:00)
[2020-03-31] MEDS: dexAMETHasone 6 MG in SYRINGE 0 ML IV SCH (09:00)
[2020-03-31] MEDS ORDERED: INFLUENZA VACCINE HIGH DOSE 65+ 0.5 ML SYR IM ONE (09:00)
[2020-03-31] MEDS ORDERED: INFLUENZA ADMINISTRATION CHARGE ONE (09:00)
[2020-03-31] MEDS: PANTOprazole 40 MG TAB PO SCH ×2 (09:00→20:36)
[2020-03-31] MEDS ORDERED: PNEUMOCOCCAL ADMINISTRATION CHARGE ONE (09:00)
[2020-03-31] MEDS: FAMOTIDINE 20 MG in SYRINGE 3 ML IV SCH ×2 (10:26→20:48)
[2020-03-31] MEDS: D5W AND 1/2NSS 1,000 ML IV SCH (11:22)
[2020-03-31] MEDS ORDERED: PHYTONADIONE 2.5 MG in SODIUM CHLORIDE 0.9% 50 ML IV ONE (16:10)
[2020-03-31] MEDS: ACETAMINOPHEN 325 MG TAB PO PRN (17:21)
[2020-03-31] MEDS: LORazepam 0.5 MG TAB PO PRN (17:21)
[2020-03-31] MEDS: MIRTAZAPINE TAB 15 MG TAB PO SCH (20:36)
[2020-03-31] MEDS: GABAPENTIN 100 MG CAP PO SCH (20:37)
[2020-03-31] MEDS: TEMAZEPAM 15 MG CAPSULE PO SCH (20:47)
[2020-04-01 07:02] LABS: D Dimer 1040 ug/L FEU (0-500)
[2020-04-01 07:18] LABS: Albumin Globulin Ratio 0.8 (0.9-2); Albumin Level 2.6 gm/dl (3.4-5.0); BUN Creatinine Ratio 31.5 (10-20); Creatinine Clr Calc Pharmacy 41.7 ml/min; Est GFR (African American) 68.5; Est GFR (Non-African American) 59.1; Globulin 3.2 gm/dl (2.5-4.0); Magnesium 2.2 mg/dl (1.8-2.4); Potassium 3.7 mmol/L (3.5-5.1); Total Protein 5.8 gm/dl (6.4-8.2)
[2020-04-01 07:24] LABS: Mean Corpuscular Hgb Conc 30.2 g/dL (32-36)
[2020-04-01 07:27] LABS: Hematocrit (blood only) 39.4 % (37-47); Hemoglobin 11.9 g/dL (12.0-16.0); Mean Corpuscular Hemoglobin 26.3 pg (25-34); RDW Coefficient of Variation 19.5 % (11.5-14.5); RDW Standard Deviation 61.6 fL (36.4-46.3); Red Blood Count 4.53 M/uL (4.2-5.4); White Blood Count 7.73 K/uL (4.8-10.8)
[2020-04-01 07:31] LABS: C Reactive Protein 1.06 mg/dl (0-0.29); Ferritin 66.1 ng/ml (8-388); Phosphorus 2.2 mg/dl (2.5-4.9)
[2020-04-01 07:34] LABS: Echinocytes 1+; Immature Granulocytes # (auto) 0.03 K/uL (0.00-0.02); Immature Granulocytes % (auto) 0.4 %; Lymphocytes # (auto) 1.41 K/uL (1.2-3.4); Lymphocytes % (auto) 18.2 %; Mean Platelet Volume 10.9 fL (7.4-10.4); Monocytes # (auto) 0.45 K/uL (0.11-0.59); Monocytes % (auto) 5.8 %; Neutrophils # (auto) 5.84 K/uL (1.4-6.5); Neutrophils % (auto) 75.6 %; Platelet Count 120 K/uL (130-400); Platelet Estimate Decreased (Normal)
[2020-04-01] MEDS: dexAMETHasone 6 MG in SYRINGE 0 ML IV SCH (08:59)
[2020-04-01] MEDS: PIPERACILLIN/TAZOBACTAM 3.375 GM in DEXTROSE 5% 100 ML IV SCH ×3 (08:59→16:28)
[2020-04-01] MEDS: ISOSORBIDE MONO EXTENDED REL 30 MG TABCR PO SCH (09:00)
[2020-04-01] MEDS: FAMOTIDINE 20 MG in SYRINGE 3 ML IV SCH ×2 (09:00→20:22)
[2020-04-01] MEDS: ESCITALOPRAM OXALATE 10 MG TAB PO SCH (09:01)
[2020-04-01] MEDS: PANTOprazole 40 MG TAB PO SCH ×2 (09:01→20:13)
[2020-04-01] MEDS: ATENOLOL 25 MG TABLET PO SCH (09:01)
[2020-04-01] MEDS: ATORVASTATIN 10 MG TAB PO SCH (09:02)
[2020-04-01] MEDS: APIXABAN 5 MG TABLET PO SCH ×2 (09:02→20:13)
[2020-04-01] MEDS: LORazepam 0.5 MG TAB PO PRN ×2 (14:05→20:23)
--- NOTE | 2020-04-01 14:46 | Hospitalist Progress Note ---
Date of Service April 01, 2020 Assessment & Plan (1) Pneumonia due to COVID-19 virus: Initial diagnosis on 03/26/2020 while at [facility]. Has LLL pneumonia on cxr including today's imaging. Remains on dexamethasone 6 mg IV once daily x 10 days, day #5 today. s/p 1 unit of convalescent plasma earlier this stay. Remdesivir had been deferred due to CrCL <30 earlier this stay. HOWEVER, CrCl is now >30 today. I spoke with Dr Baig from pulmonary -- given the lack of clinical improvement, rising d-dimer, etc -- will start 5-day course of remdesivir today. Check BMP, LFTs in am. Given her hospital stay at [facility] for LLL pneumonia from 03/05 to 03/15, ongoing infiltrates in the LLL, pleuritic pain in the left chest, etc -- will continue zosyn for possible superimposed bacterial pneumonia. Thus, day #4 of such. Continue supportive care, NC O2, incentive spirometry, oob to chair, pulmonary toilet, etc. I am concerned by her overall lack of improvement to date. (2) Acute respiratory failure with hypoxia: 2nd to COVID-19 infection and LLL pneumonia. See above. (3) CKD (chronic kidney disease) stage 3, GFR 30-59 ml/min: CrCl now 40. Start remdesivir. BMP in am. (4) CAD (coronary artery disease): Remote history of [place] with stents placed in 2002 and 2004. Follow[address] Dr. Tinoco, cardiology in [place]. Troponin upon admission was 0.044 (wnl). No ischemic symptoms at this time. Cont atenolol. Cont imdur. Cont statin. (5) Hypertension: Continue current meds. lasix on hold - possibly resume tomorrow based on volume status. (6) Hyperlipidemia: Continue home atorvastatin (7) Gastroesophageal reflux disease: Continue PPI twice daily along with pepcid. (8) Depression with anxiety: Continue home Lexapro, mirtazapine and temazepam to avoid withdrawal. Continue ativan q6h prn per home dosing. (9) History of pulmonary embolism: Noted. Cont eliquis. (10) Current use of assisted anticoagulation: Eliquis for history of pulmonary embolism. (11) Coagulopathy: INR 2.4 at admission. s/p vitamin K with improved INR to <1.5. Likely vitamin K deficiency. (12) Hypotension: At admission - in the setting of pneumonia & COVID-19 - resolved. (13) History of permanent cardiac pacemaker placement: noted. Had been pacing on telemetry prior to d/c of monitoring. (14) CHF (congestive heart failure): Mild JVD noted today but otherwise no signs of severe decompensation. Lasix is currently on hold. Resume lasix tomorrow as necessary. EF and diastolic function are uncertain. (15) Thrombocytopenia: Secondary to COVID-19? Repeat CBC am. (16) Insomnia: Continue home temazepam (17) Hypernatremia: resolved (18) DVT prophylaxis: eliquis 5mg BID updated pt's daughter by phone on 04/01/20 remdesivir to be initiated today will attempt to set up skype-session between daughter and Mrs Bradford PT, OT for severe weakness prognosis is guarded Admission and Anticipated Discharge Date Admission Date: March 28, 2020 Subjective continues to feel very weak. no appetite. continues to cough - nonproductive. mild shortness of breath when getting out of bed. no loss of taste or smell. staff and daughter have noted intermittent confusion. was able to relate today her recent history including a stay at [facility] in [place] for pneumonia followed by SNF stay at [facility]. Review of Systems Constitutional: + fatigue, + malaise, + weakness and + anorexia; no fever and no chills Ear, Nose, Mouth, Throat: no sore throat Respiratory: + cough and + dyspnea on exertion Cardiovascular: + chest pain (pleuritic - on left ) Gastrointestinal: no abdominal pain, no nausea, no vomiting and no diarrhea/loose stools Physical Exam Constitutional: + ill appearing and + frail appearing; no acute distress and no altered mental status harsh, bronchial cough ENMT: Mouth: + dry oral mucous membranes Respiratory: + cough; no respiratory distress Auscultation: + crackles (left base); no wheezes course BS B/l throughout Cardiovascular: Rate/Rhythm: regular rate and regular rhythm Heart Sounds: normal S1 and normal S2; no murmur Vessels: + JVD, posterior tibial pulses present and dorsalis pedis pulses present Extremities: + edema (1+ b/l ) extra beats heard Gastrointestinal (Abdomen): normal bowel sounds, soft, nontender, no hepatosplenomegaly Psychiatric: Orientation: alert, oriented to person and oriented to place; + not oriented to time Results & Data Results & Data ([facility]) Vital Signs (Past 12 Hours) Vital Signs Temp Pulse Resp BP BP Pulse Ox Pulse Ox 04/01/20 10:57 36.3 C L 60 19 123/66 100 04/01/20 08:00 95 04/01/20 07:18 36.3 C L 68 18 113/70 95 04/01/20 05:46 36.4 C L 60 20 132/75 98 04/01/20 04:00 76 20 90 Laboratory Results Laboratory Results - last 24 hr 04/01/20 04/01/20 04/01/20 06:30 06:30 06:30 WBC 7.73 RBC 4.53 Hgb 11.9 L Hct 39.4 MCV 87.0 MCH 26.3 MCHC 30.2 L RDW Std Deviation 61.6 H RDW Coeff of Wali 19.5 H Plt Count 120 L MPV 10.9 H Immature Gran % (Auto) 0.4 Neut % (Auto) 75.6 Lymph % (Auto) 18.2 [place] % (Auto) 5.8 Eos % (Auto) 0.0 Baso % (Auto) 0.0 Neut # (Auto) 5.84 Lymph # (Auto) 1.41 [place] # (Auto) 0.45 Eos # (Auto) 0.00 Baso # (Auto) 0.00 Immature Gran # (Auto) 0.03 H Platelet Estimate Decreased L Echinocytes 1+ ESR Cancelled D-Dimer 1040 H* Sodium Potassium Chloride Carbon Dioxide Anion Gap BUN Creatinine Est Cr Clr Drug Dosing Est GFR ( Amer) Est GFR (Non-Af Amer) BUN/Creatinine Ratio Glucose Calcium Phosphorus Magnesium Ferritin Total Bilirubin AST ALT Alkaline Phosphatase Lactate Dehydrogenase C-Reactive Protein Total Protein Albumin Globulin Albumin/Globulin Ratio 04/01/20 04/01/20 04/01/20 06:30 06:30 08:10 WBC RBC Hgb Hct MCV MCH MCHC RDW Std Deviation RDW Coeff of Wali Plt Count MPV Immature Gran % (Auto) Neut % (Auto) Lymph % (Auto) [place] % (Auto) Eos % (Auto) Baso % (Auto) Neut # (Auto) Lymph # (Auto) [place] # (Auto) Eos # (Auto) Baso # (Auto) Immature Gran # (Auto) Platelet Estimate Echinocytes ESR 2 D-Dimer Sodium 141 Potassium 3.7 Chloride 111 H Carbon Dioxide 25 Anion Gap 5.0 BUN 28 H Creatinine 0.89 Est Cr Clr Drug Dosing 41.7 Est GFR ( Amer) 68.5 Est GFR (Non-Af Amer) 59.1 BUN/Creatinine Ratio 31.5 H Glucose 119 H Calcium 8.0 L Phosphorus 2.2 L Magnesium 2.2 Ferritin 66.1 Total Bilirubin 1.0 AST 21 ALT 14 Alkaline Phosphatase 83 Lactate Dehydrogenase 233 C-Reactive Protein 1.06 H Total Protein 5.8 L Albumin 2.6 L Globulin 3.2 Albumin/Globulin Ratio 0.8 L PG Care Time/CCT Total # of Minutes Spent Total Time Spent with Patient: Total time spent is greater than 50% in coordination of care (as documented) at patient's floor/unit and/or counseling patient: Coding Level of Care Code 25769 Subseq Hosp Care Lvl 3 Diagnoses Pneumonia due to COVID-19 virus U07.1; J12.89 Acute respiratory failure with hypoxia J96.01 CKD (chronic kidney disease) stage 3, GFR 30-59 ml/min N18.30 CAD (coronary artery disease) I25.10 Hypertension I10 Hyperlipidemia E78.5 Gastroesophageal reflux disease K21.9 Depression with anxiety F41.8 History of pulmonary embolism Z86.711 Current use of assisted anticoagulation Z79.01 Coagulopathy D68.9 Hypotension I95.9 History of permanent cardiac pacemaker placement Z95.0 CHF (congestive heart failure) I50.9 Thrombocytopenia D69.6 Insomnia G47.00 Hypernatremia E87.0 DVT prophylaxis Z29.9
--- NOTE | 2020-04-01 16:02 | XRay Report ---
XR chest 1V portable HISTORY: COVID-19, worsening pulm sx's; eval edema, etc COMPARISON: Chest 03/30/2020. FINDINGS: No pneumothorax. Small bilateral pleural effusions persist. There is mild perihilar interst itial vascular thickening suggestive of congestive change. This is also unchanged. Left basilar densi ty remains unchanged. There is left-sided dual-chamber pacemaker. The heart remains mildly enlarged. Old, healed right humeral neck fracture. IMPRESSION: 1. No change in the left basilar densities suggestive of pneumonia. 2. Mild central pulmonary vascular congestion without overt edema. 3. Small bilateral pleural effusions persist. ACT 112: Negative or not required by law. Electronically signed by: Madhu Perry M.D. 04/01/2020 4:00 PM
[2020-04-01] MEDS: LIDOCAINE 5% 1 PATCH TD SCH (16:27)
[2020-04-01] MEDS: POT PHOSPHATE MONOBASIC W/ SOD TAB PO SCH ×2 (16:28→20:13)
[2020-04-01] MEDS ORDERED: NSS 30mL Flush, Days 1-5 IV SCH (17:30)
[2020-04-01] MEDS: REMDESIVIR 200 mg: Day 1 IV ONE ×2 (18:17→18:39)
[2020-04-01] MEDS: GABAPENTIN 100 MG CAP PO SCH (20:12)
[2020-04-01] MEDS: MIRTAZAPINE TAB 15 MG TAB PO SCH (20:13)
[2020-04-01] MEDS ORDERED: REMDESIVIR 200 mg: Day 1 IV ONE (20:30)
[2020-04-01] MEDS: TEMAZEPAM 15 MG CAPSULE PO SCH (21:46)
[2020-04-01] MEDS: NSS 30mL Flush, Days 1-5 IV SCH (22:29)
[2020-04-02] MEDS: PIPERACILLIN/TAZOBACTAM 3.375 GM in DEXTROSE 5% 100 ML IV SCH ×4 (00:10→23:26)
[2020-04-02] MEDS: LORazepam 0.5 MG TAB PO PRN ×2 (05:57→17:07)
[2020-04-02 08:21] LABS: Hematocrit (blood only) 40.6 % (37-47); Hemoglobin 12.6 g/dL (12.0-16.0); Mean Corpuscular Volume 86.9 fL (80-100); Mean Platelet Volume 11.1 fL (7.4-10.4); Platelet Count 160 K/uL (130-400); RDW Coefficient of Variation 19.8 % (11.5-14.5); RDW Standard Deviation 62.5 fL (36.4-46.3); Red Blood Count 4.67 M/uL (4.2-5.4); White Blood Count 12.24 K/uL (4.8-10.8)
[2020-04-02 08:54] LABS: Albumin Level 2.8 gm/dl (3.4-5.0); Calcium 8.5 mg/dl (8.5-10.1); Creatinine Clr Calc Pharmacy 44.8 ml/min; Est GFR (African American) 82.9; Est GFR (Non-African American) 71.5; Potassium 3.5 mmol/L (3.5-5.1)
[2020-04-02] MEDS: dexAMETHasone 6 MG in SYRINGE 0 ML IV SCH (08:55)
[2020-04-02] MEDS: FAMOTIDINE 20 MG in SYRINGE 3 ML IV SCH ×2 (08:55→20:58)
[2020-04-02] MEDS: LIDOCAINE 5% 1 PATCH TD SCH (08:55)
[2020-04-02] MEDS: POT PHOSPHATE MONOBASIC W/ SOD TAB PO SCH ×4 (08:55→21:00)
[2020-04-02] MEDS: ATORVASTATIN 10 MG TAB PO SCH (08:56)
[2020-04-02] MEDS: ESCITALOPRAM OXALATE 10 MG TAB PO SCH (08:56)
[2020-04-02] MEDS: ATENOLOL 25 MG TABLET PO SCH (08:56)
[2020-04-02] MEDS: APIXABAN 5 MG TABLET PO SCH ×2 (08:56→21:00)
[2020-04-02] MEDS: ISOSORBIDE MONO EXTENDED REL 30 MG TABCR PO SCH (08:56)
[2020-04-02] MEDS: PANTOprazole 40 MG TAB PO SCH ×2 (08:56→21:00)
[2020-04-02 08:57] LABS: Albumin Globulin Ratio 0.8 (0.9-2); Bilirubin,Total 1.1 mg/dl (0.2-1); Globulin 3.5 gm/dl (2.5-4.0); Total Protein 6.3 gm/dl (6.4-8.2)
[2020-04-02] MEDS: CEROVITE ADV FORMULA TAB PO SCH (08:57)
[2020-04-02 08:59] LABS: Folate (Folic Acid) 5.56 ng/ml (>5.38)
[2020-04-02] MEDS: FOLIC ACID 1 MG in SYRINGE 9.8 ML IV SCH (09:37)
[2020-04-02] MEDS: NYSTATIN POWDER 15GM BTL EXT SCH ×3 (13:00→20:59)
[2020-04-02 14:22] LABS: Base Excess ABG 0.7 mEq/L (-9-1.8); HCO3 ABG 25 mmol/L (19-24); PCO2 ABG 38 mmHg (35-46); PO2 ABG 67 mmHg (80-95); pH ABG 7.43 (7.35-7.45)
[2020-04-02 14:24] LABS: Allen Test Pos (Pos)
[2020-04-02] MEDS: LACTOBACILLUS ACIDOPHILUS (FLORANEX) TAB PO SCH ×2 (14:29→17:13)
--- NOTE | 2020-04-02 14:40 | Hospitalist Progress Note ---
Date of Service April 02, 2020 Assessment & Plan (1) Acute metabolic encephalopathy: Ongoing since the weekend but much worse today. Likely combination of delirium from COVID, hospital psychosis, etc. Supportive care. Consider CT head if any worsening but low yield. Had neg head CT earlier this stay. ABG w/o hypercarbia today. (2) Pneumonia due to COVID-19 virus: Initial diagnosis on 03/26/2020 while at [facility]. Has LLL pneumonia on cxr. Remains on dexamethasone 6 mg IV once daily x 10 days, day #6 today. s/p 1 unit of convalescent plasma earlier this stay. Remdesivir had been deferred due to CrCL <30 earlier this stay. HOWEVER, CrCl has been ~40 and remdesivir started on 04/01/20. THUS, today is day #2 of 5 of such. Check BMP, LFTs in am. Given her hospital stay at [facility] for LLL pneumonia from 03/05 to 03/15, ongoing infiltrates in the LLL, pleuritic pain in the left chest, poor clinical status -- will continue zosyn for possible superimposed bacterial pneumonia. Today is day #5 of such. Continue supportive care, NC O2, incentive spirometry, oob to chair when possible. ABG w/o hypercarbia this afternoon. Repeat dimer in am -- had been rising over last few days. (3) Acute respiratory failure with hypoxia: 2nd to COVID-19 infection and LLL pneumonia. See above. (4) CKD (chronic kidney disease) stage 3, GFR 30-59 ml/min: CrCl stable 30-40. BMP in am. (5) CAD (coronary artery disease): Remote history of [place] with stents placed in 2002 and 2004. Follow[address] Dr. Tinoco, cardiology in [place]. Troponin upon admission was 0.044 (wnl). No ischemic symptoms. Cont atenolol. Cont imdur. Cont statin. (6) Hypertension: Continue current meds except lasix (pt starting to look dry on exam). (7) Hyperlipidemia: Continue home atorvastatin if she will take it (8) Gastroesophageal reflux disease: Continue PPI twice daily along with pepcid. (9) Depression with anxiety: Continue home Lexapro, mirtazapine and temazepam (latter to avoid withdrawal). Continue ativan q6h prn per home dosing. (10) History of pulmonary embolism: Noted. Cont eliquis. (11) Current use of roasterman anticoagulation: Eliquis for history of pulmonary embolism. (12) Coagulopathy: INR 2.4 at admission. s/p vitamin K with improved INR to <1.5. Likely vitamin K deficiency. (13) Hypotension: At admission - in the setting of pneumonia & COVID-19 - resolved. (14) History of permanent cardiac pacemaker placement: noted. Had been pacing on telemetry prior to d/c of monitoring. (15) CHF (congestive heart failure): If anything patient is volume contracted due to poor oral intake. Cont to hold lasix. EF and diastolic function are uncertain. (16) Thrombocytopenia: Secondary to COVID-19? improved to 160 today. (17) Insomnia: Continue home temazepam (18) Hypernatremia: resolved BMP am (19) DVT prophylaxis: eliquis 5mg BID updated pt's daughter by phone on 04/01/20 and again today; questions answered will attempt to set up skype-session between daughter and Mrs Bradford PT, OT for severe weakness if able to participate prognosis is guarded; I am quite discouraged by her status today and I conveyed to pt's daughter that the next 1-2 days will tell us if she will survive this infection Admission and Anticipated Discharge Date Admission Date: March 28, 2020 Subjective during my bedside rounds I could not wake Mrs Brafdord. per staff she was lethargic during the morning - did not eat breakfast; barely able to take pills. later in day she refused multiple PO meds. I ordered ABG shortly after my visit - no CO2 retention. awoke by dinner time (5pm) per staff but no appetite. tele overnight wnl. Review of Systems Review of Systems: Unobtainable due to cognitive status and Unobtainable due to reduced consciousness Physical Exam Constitutional: + ill appearing, + altered mental status (Lethargic; I could not wake the patient today during rounds) and + frail appearing; no acute distress ENMT: Mouth: + dry oral mucous membranes Respiratory: + cough; no respiratory distress Auscultation: + crackles (left base); no wheezes course BS b/l Cardiovascular: Rate/Rhythm: regular rate and regular rhythm Heart Sounds: normal S1 and normal S2; no murmur Vessels: posterior tibial pulses present and dorsalis pedis pulses present; no JVD Extremities: + edema (Trace b/l ) Gastrointestinal (Abdomen): normal bowel sounds, soft, nontender, no hepatosplenomegaly Psychiatric: Orientation: + not alert and + not oriented x 3 Results & Data Results & Data ([place]) Vital Signs (Past 12 Hours) Vital Signs Temp Pulse Pulse Resp BP Pulse Ox Pulse Ox 04/02/20 08:04 36.4 C L 72 18 147/94 H 97 04/02/20 08:00 97 04/02/20 02:52 36.4 C L 79 20 139/83 91 Laboratory Results Laboratory Results - last 24 hr 04/02/20 04/02/20 04/02/20 06:45 06:45 06:45 WBC 12.24 H RBC 4.67 Hgb 12.6 Hct 40.6 MCV 86.9 MCH 27.0 MCHC 31.0 L RDW Std Deviation 62.5 H RDW Coeff of Wali 19.8 H Plt Count 160 MPV 11.1 H ABG pH ABG pCO2 ABG pO2 ABG HCO3 ABG O2 Saturation ABG Base Excess Jimmy Test Barometric Pressure Oxygen Given Sodium 145 Potassium 3.5 Chloride 111 H Carbon Dioxide 28 Anion Gap 6.0 BUN 21 H Creatinine 0.76 Est Cr Clr Drug Dosing 44.8 Est GFR ( Amer) 82.9 Est GFR (Non-Af Amer) 71.5 BUN/Creatinine Ratio 28.0 H Glucose 78 Calcium 8.5 Total Bilirubin 1.1 H AST 23 ALT 17 Alkaline Phosphatase 85 Total Protein 6.3 L Albumin 2.8 L Globulin 3.5 Albumin/Globulin Ratio 0.8 L Vitamin B12 1175 H Folate 5.56 Stl C. diff Tox B Gene 04/02/20 04/02/20 12:45 14:02 WBC RBC Hgb Hct MCV MCH MCHC RDW Std Deviation RDW Coeff of Wali Plt Count MPV ABG pH 7.43 ABG pCO2 38 ABG pO2 67 L ABG HCO3 25 H ABG O2 Saturation 93.0 ABG Base Excess 0.7 Jimmy Test Pos Barometric Pressure 730.5 Oxygen Given 4 L Sodium Potassium Chloride Carbon Dioxide Anion Gap BUN Creatinine Est Cr Clr Drug Dosing Est GFR ( Amer) Est GFR (Non-Af Amer) BUN/Creatinine Ratio Glucose Calcium Total Bilirubin AST ALT Alkaline Phosphatase Total Protein Albumin Globulin Albumin/Globulin Ratio Vitamin B12 Folate Stl C. diff Tox B Gene Negative Cdiff Gene PG Care Time/CCT Total # of Minutes Spent Total Time Spent with Patient: Total time spent is greater than 50% in coordination of care (as documented) at patient's floor/unit and/or counseling patient: Coding Level of Care Code 67750 Subseq Hosp Care Lvl 3 Diagnoses Acute metabolic encephalopathy G93.41 Pneumonia due to COVID-19 virus U07.1; J12.89 Acute respiratory failure with hypoxia J96.01 CKD (chronic kidney disease) stage 3, GFR 30-59 ml/min N18.30 CAD (coronary artery disease) I25.10 Hypertension I10 Hyperlipidemia E78.5 Gastroesophageal reflux disease K21.9 Depression with anxiety F41.8 History of pulmonary embolism Z86.711 Current use of mcfp anticoagulation Z79.01 Coagulopathy D68.9 Hypotension I95.9 History of permanent cardiac pacemaker placement Z95.0 CHF (congestive heart failure) I50.9 Thrombocytopenia D69.6 Insomnia G47.00 Hypernatremia E87.0 DVT prophylaxis Z29.9
[2020-04-02] MEDS ORDERED: REMDESIVIR 100mg: Days 2-5 IV SCH ×2 (16:00→17:00)
--- NOTE | 2020-04-02 17:58 | XRay Report ---
XR chest 1V portable CLINICAL HISTORY: COVID pneumonia, worsening hypoxia COMPARISON STUDY: Chest radiograph April 01, 2020. FINDINGS: Dual lead left subclavian pacemaker is in place. There is moderate cardiomegaly. Trace righ t and small left pleural effusions are noted. Left lower lung airspace opacity has slightly improved. There is no evidence for pulmonary edema. Pulmonary vascular congestion has improved. There is no pn eumothorax. Cardiomegaly is again noted. Old proximal right humeral deformity is incidentally noted. IMPRESSION: 1. Interval improvement left basilar opacity since prior exam. 2. Small left and trace right pleural effusions. 3. Cardiomegaly without evidence for pulmonary edema. ACT 112: Negative or not required by law. Electronically signed by: Eugene Casper M.D. 04/02/2020 5:57 PM
[2020-04-02] MEDS: REMDESIVIR 100mg: Days 2-5 IV SCH (20:58)
[2020-04-02] MEDS: TEMAZEPAM 15 MG CAPSULE PO SCH (20:58)
[2020-04-02] MEDS: GABAPENTIN 100 MG CAP PO SCH (20:59)
[2020-04-02] MEDS: MIRTAZAPINE TAB 15 MG TAB PO SCH (20:59)
[2020-04-02] MEDS: NSS 30mL Flush, Days 1-5 IV SCH (21:59)
[2020-04-03 05:58] LABS: BUN Creatinine Ratio 28.2 (10-20); Calcium 8.1 mg/dl (8.5-10.1); Creatinine Clr Calc Pharmacy 50.8 ml/min; Est GFR (African American) 92.9; Est GFR (Non-African American) 80.2; Potassium 3.4 mmol/L (3.5-5.1)
[2020-04-03 06:24] LABS: D Dimer 670 ug/L FEU (0-500)
[2020-04-03] MEDS: dexAMETHasone 6 MG in SYRINGE 0 ML IV SCH ×2 (08:23→22:06)
[2020-04-03] MEDS: APIXABAN 5 MG TABLET PO SCH ×2 (08:24→22:07)
[2020-04-03] MEDS: FOLIC ACID 1 MG in SYRINGE 9.8 ML IV SCH (08:24)
[2020-04-03] MEDS: PANTOprazole 40 MG TAB PO SCH ×2 (08:24→22:06)
[2020-04-03] MEDS: POT PHOSPHATE MONOBASIC W/ SOD TAB PO SCH ×4 (08:24→22:06)
[2020-04-03] MEDS: LACTOBACILLUS ACIDOPHILUS (FLORANEX) TAB PO SCH ×3 (08:25→18:04)
[2020-04-03] MEDS: CEROVITE ADV FORMULA TAB PO SCH (08:26)
[2020-04-03] MEDS: ISOSORBIDE MONO EXTENDED REL 30 MG TABCR PO SCH (08:26)
[2020-04-03] MEDS: ATENOLOL 25 MG TABLET PO SCH (08:27)
[2020-04-03] MEDS: ESCITALOPRAM OXALATE 10 MG TAB PO SCH (08:28)
[2020-04-03] MEDS: ATORVASTATIN 10 MG TAB PO SCH (08:29)
[2020-04-03] MEDS: PIPERACILLIN/TAZOBACTAM 3.375 GM in DEXTROSE 5% 100 ML IV SCH ×2 (08:51→16:31)
[2020-04-03] MEDS: NYSTATIN POWDER 15GM BTL EXT SCH ×3 (08:52→20:47)
[2020-04-03] MEDS: LIDOCAINE 5% 1 PATCH TD SCH (08:52)
[2020-04-03] MEDS: D5W AND 1/2NSS + 20MEQ KCL 20 MEQ/1,000 ML BAG IV SCH ×2 (08:52→20:55)
[2020-04-03] MEDS: FAMOTIDINE 20 MG in SYRINGE 3 ML IV SCH ×2 (08:53→20:47)
[2020-04-03] MEDS: ONDANSETRON INJ 2 MG/ML 2 ML VIAL IV PRN (09:13)
[2020-04-03] MEDS ORDERED: IPRATROPIUM BROMIDE/ALBUTEROL respimat INH INH SCH (14:40)
[2020-04-03] MEDS: ALBUTEROL HFA 8 GM INHALER INH SCH ×2 (15:05→19:39)
[2020-04-03] MEDS: IPRATROPIUM BROMIDE HFA INHALER INH SCH ×2 (15:06→19:38)
[2020-04-03] MEDS: LORazepam 0.5 MG TAB PO PRN ×2 (18:11→23:01)
[2020-04-03] MEDS ORDERED: TEMAZEPAM 15 MG CAPSULE PO PRN (19:50)
--- NOTE | 2020-04-03 19:50 | Hospitalist Progress Note ---
Date of Service April 03, 2020 Assessment & Plan (1) Pneumonia due to COVID-19 virus: WORSE TODAY. Initial diagnosis on 03/26/2020 while at [facility]. Has LLL pneumonia on cxr. Remains on dexamethasone 6 mg IV once daily x 10 days, day #7 today. s/p 1 unit of convalescent plasma earlier this stay. Remdesivir had been deferred due to CrCL <30 earlier this stay. HOWEVER, remdesivir started on 04/01/20 as renal function improved. THUS, today is day #3 of 5 of such. Despite the above measures she continues to worsen. Sleepy/lethargic, severe anorexia, worsening lung exam, development of retractions/tachypnea. D-dimer also gris overnight. Elected to INCREASE her decadron to BID dosing today due to worsening wheezes. add scheduled combivent. If distress worsens or becomes more hypoxic CHANGE TO HIGH-FLOW NC. Given her hospital stay at [facility] for LLL pneumonia from 03/05 to 03/15, ongoing infiltrates in the LLL, poor clinical status -- will continue zosyn for possible superimposed bacterial pneumonia. Today is day #6 of such. Stop tomorrow. Continue supportive care. Prognosis VERY, VERY poor. (2) Acute metabolic encephalopathy: ongoing since admission. was fairly oriented today but [id number] sleepy/lethargic. supportive care. (3) Acute respiratory failure with hypoxia: 2nd to COVID-19 infection and LLL pneumonia. See above. (4) CKD (chronic kidney disease) stage 3, GFR 30-59 ml/min: CrCl stable 40-50. BMP in am. (5) CAD (coronary artery disease): Remote history of [place] with stents placed in 2002 and 2004. Follows with Dr. Tinoco, cardiology in [place]. Troponin upon admission was 0.044 (wnl). No ischemic symptoms. Cont atenolol/imdur/statin - if she is awake enough to take these meds orally. (6) Hypertension: Continue current meds except lasix (patient volume contracted). (7) Hyperlipidemia: Continue home atorvastatin if she will take it/can take it (8) Gastroesophageal reflux disease: Continue PPI twice daily along with pepcid. (9) Depression with anxiety: Continue ativan q6h prn. Due to excessive sleepiness hold HS temazepam. (10) History of pulmonary embolism: Cont eliquis. (11) Current use of residential anticoagulation: Eliquis for history of pulmonary embolism. (12) Coagulopathy: INR 2.4 at admission. s/p vitamin K with improved INR to <1.5. Likely vitamin K deficiency. (13) Hypotension: At admission - in the setting of pneumonia & COVID-19 - resolved. (14) History of permanent cardiac pacemaker placement: noted. Had been pacing on telemetry prior to d/c of monitoring. (15) CHF (congestive heart failure): Patient with no evidence of hypervolemia. Volume contacted clinically and lab-jones (high Na). Hold lasix. EF uncertain. (16) Thrombocytopenia: Secondary to COVID-19. repeat CBC am. (17) Insomnia: HOLD home temazepam due to sleepiness. (18) Hypernatremia: due to dehydration. start D5 1/2 NS x 2 liters. bmp am. (19) DVT prophylaxis: eliquis 5mg BID updated pt's daughter by phone on 04/01/20, 04/02, and 04/03 I told her daughter today that she continues to worsen despite maximal supportive efforts for COVID-19, possible superimposed bacterial pneumonia, etc. she is not eating, no energy, worsening lung exam pt's daughter feels that "patient is ready to go" apparently in February and even prior pt had been telling her she was ready to to be with her who has been for some time if any worsening overnight consider transitioning to comfort care pathway if daughter desires such otherwise continue current care plan and re-eval tomorrow formal palliative care consult placed Admission and Anticipated Discharge Date Admission Date: March 28, 2020 Subjective patient continues to be very sleep/lethargic but does wake to her name being called and follows simple commands. has not eaten in nearly 48 hours except for minimal bites of food. no liquids. during my visit today patient opened eyes for me. she coughed during the entire visit. cough is harsh and bronchial in quality/sound. patient c/o severe fatigue, no energy. denies cp or abd pain. I offered to pray with her -- she declined, stating "I'll do that on my own." she quickly closed her eyes. continues with loose stools per nursing. Review of Systems Constitutional: + fatigue, + malaise, + weakness and + anorexia Respiratory: + cough and + dyspnea; no sputum production Cardiovascular: no chest pain Gastrointestinal: no abdominal pain and no vomiting Physical Exam Constitutional: + acute distress (mild tachypnea with retractions ), + ill appearing, + altered mental status (Lethargic/sleepy but could wake during the visit; exhausted ) and + frail appearing ENMT: Mouth: + dry oral mucous membranes (severe ) Respiratory: + respiratory distress, + retractions, + cough and + tachypneic Auscultation: + crackles (extensive today; b/l) and + wheezes (end-exp) Cardiovascular: Rate/Rhythm: regular rate and regular rhythm Heart Sounds: normal S1 and normal S2; no murmur Vessels: posterior tibial pulses present and dorsalis pedis pulses present; no JVD Extremities: + edema (1+ b/l legs) Gastrointestinal (Abdomen): normal bowel sounds, soft, nontender, no hepatosplenomegaly Psychiatric: Orientation: oriented to person, oriented to place and oriented to time (knew it was 2019 and that "she had a virus"); + not alert Results & Data Results & Data ([facility]) Vital Signs (Past 12 Hours) Vital Signs Temp Pulse Pulse Resp BP Pulse Ox Pulse Ox 04/03/20 18:17 141/95 H 04/03/20 15:32 36.8 C 74 20 96 04/03/20 15:06 75 20 97 04/03/20 13:00 94 04/03/20 08:21 97 04/03/20 08:10 36.4 C L 84 20 164/95 H 93 Laboratory Results Laboratory Results - last 24 hr 04/03/20 04/03/20 04:23 04:23 D-Dimer 670 H* Sodium 146 H Potassium 3.4 L Chloride 111 H Carbon Dioxide 32 Anion Gap 3.0 BUN 19 H Creatinine 0.67 Est Cr Clr Drug Dosing 50.8 Est GFR ( Amer) 92.9 Est GFR (Non-Af Amer) 80.2 BUN/Creatinine Ratio 28.2 H Glucose 74 Calcium 8.1 L PG Care Time/CCT Total # of Minutes Spent Total Time Spent with Patient: Total time spent is greater than 50% in coordination of care (as documented) at patient's floor/unit and/or counseling patient: Coding Level of Care Code 35857 Subseq Hosp Care Lvl 3 Diagnoses Pneumonia due to COVID-19 virus U07.1; J12.89 Acute metabolic encephalopathy G93.41 Acute respiratory failure with hypoxia J96.01 CKD (chronic kidney disease) stage 3, GFR 30-59 ml/min N18.30 CAD (coronary artery disease) I25.10 Hypertension I10 Hyperlipidemia E78.5 Gastroesophageal reflux disease K21.9 Depression with anxiety F41.8 History of pulmonary embolism Z86.711 Current use of residential anticoagulation Z79.01 Coagulopathy D68.9 Hypotension I95.9 History of permanent cardiac pacemaker placement Z95.0 CHF (congestive heart failure) I50.9 Thrombocytopenia D69.6 Insomnia G47.00 Hypernatremia E87.0 DVT prophylaxis Z29.9
[2020-04-03] MEDS: REMDESIVIR 100mg: Days 2-5 IV SCH (20:45)
[2020-04-03] MEDS: NSS 30mL Flush, Days 1-5 IV SCH (20:47)
[2020-04-03] MEDS: MIRTAZAPINE TAB 15 MG TAB PO SCH (22:07)
[2020-04-03] MEDS: GABAPENTIN 100 MG CAP PO SCH (22:07)
[2020-04-04] MEDS: PIPERACILLIN/TAZOBACTAM 3.375 GM in DEXTROSE 5% 100 ML IV SCH ×2 (00:08→09:02)
[2020-04-04 05:40] LABS: Mean Corpuscular Hgb Conc 30.6 g/dL (32-36)
[2020-04-04 05:55] LABS: D Dimer 550 ug/L FEU (0-500)
[2020-04-04 06:03] LABS: Hematocrit (blood only) 36.9 % (37-47); Hemoglobin 11.3 g/dL (12.0-16.0); Mean Corpuscular Hemoglobin 26.3 pg (25-34); Mean Corpuscular Volume 85.8 fL (80-100); RDW Coefficient of Variation 19.8 % (11.5-14.5); RDW Standard Deviation 61.4 fL (36.4-46.3); White Blood Count 10.52 K/uL (4.8-10.8)
[2020-04-04 06:07] LABS: BUN Creatinine Ratio 25.7 (10-20); C Reactive Protein 2.89 mg/dl (0-0.29); Calcium 7.5 mg/dl (8.5-10.1); Creatinine Clr Calc Pharmacy 56.4 ml/min; Est GFR (African American) 93.4; Est GFR (Non-African American) 80.6; Potassium 3.6 mmol/L (3.5-5.1)
[2020-04-04 06:54] LABS: Anisocytosis Present; Basophils # (auto) 0.01 K/uL (0-0.2); Basophils % (auto) 0.1 %; Echinocytes 1+; Immature Granulocytes # (auto) 0.04 K/uL (0.00-0.02); Immature Granulocytes % (auto) 0.4 %; Lymphocytes # (auto) 1.18 K/uL (1.2-3.4); Lymphocytes % (auto) 11.2 %; Mean Platelet Volume 10.5 fL (7.4-10.4); Monocytes % (auto) 5.7 %; Neutrophils # (auto) 8.69 K/uL (1.4-6.5); Neutrophils % (auto) 82.6 %; Platelet Count 137 K/uL (130-400); Platelet Estimate Normal (Normal)
[2020-04-04] MEDS: IPRATROPIUM BROMIDE HFA INHALER INH SCH ×2 (07:23→11:34)
[2020-04-04] MEDS: ALBUTEROL HFA 8 GM INHALER INH SCH ×2 (07:23→11:34)
[2020-04-04] MEDS: dexAMETHasone 6 MG in SYRINGE 0 ML IV SCH ×2 (09:03→20:45)
[2020-04-04] MEDS: FOLIC ACID 1 MG in SYRINGE 9.8 ML IV SCH (09:04)
[2020-04-04] MEDS: LACTOBACILLUS ACIDOPHILUS (FLORANEX) TAB PO SCH ×2 (09:08→18:36)
[2020-04-04] MEDS: PANTOprazole 40 MG TAB PO SCH (09:09)
[2020-04-04] MEDS: APIXABAN 5 MG TABLET PO SCH (09:09)
[2020-04-04] MEDS: ESCITALOPRAM OXALATE 10 MG TAB PO SCH (09:09)
[2020-04-04] MEDS: ISOSORBIDE MONO EXTENDED REL 30 MG TABCR PO SCH (09:09)
[2020-04-04] MEDS: POT PHOSPHATE MONOBASIC W/ SOD TAB PO SCH (09:09)
[2020-04-04] MEDS: CEROVITE ADV FORMULA TAB PO SCH (09:10)
[2020-04-04] MEDS: ATORVASTATIN 10 MG TAB PO SCH (09:10)
[2020-04-04] MEDS: NYSTATIN POWDER 15GM BTL EXT SCH (09:11)
[2020-04-04] MEDS: LIDOCAINE 5% 1 PATCH TD SCH (09:11)
[2020-04-04] MEDS: ATENOLOL 25 MG TABLET PO SCH (09:12)
[2020-04-04] MEDS: FAMOTIDINE 20 MG in SYRINGE 3 ML IV SCH (09:28)
[2020-04-04] MEDS: ACETAMINOPHEN 325 MG TAB PO PRN (09:48)
[2020-04-04] MEDS: LORazepam 0.5 MG TAB PO PRN (09:48)
--- NOTE | 2020-04-04 09:48 | Palliative Care Consultation ---
Date of Consultation April 04, 2020 Assessment & Plan (1) Palliative care encounter: This is an 85 year old female who presented to the [facility] ED from [facility] where she was noted to have increased lethargy, hypoxia and a new confirmation of COVID-19. The patients SPO2 was 85% on admission. Additional PMH includes: CHF, anxiety, CAD s/p DILMA , insomnia, and GERD. She had a recent inpatient hospitalization at [facility] from March 05- for pneumonia. She was admitted to the COVID unit and was started on steroids, received a dose of convalescent plasma and has received 5 days of Remdesivir. Her current WBC is 12.24. She has continued to have worsening lethargy and no appetite. The hospitalist has had conversation with he patients family who indicated that she has been declining and ultimately is ready to go. It appears from review of the chart, the family is leaning towards a more comfort approach should she decline further. Palliative Care was consulted to discuss goals of care. -I collaborated with Dr. Nelson Cummins regarding the patients care. The patient is located int he COVID-19 unit and a physical assessment will be deferred to limit the amount of providers in the unit. -Lengthy conversations have been held with Dr. Cummins and the patients daughter Katerina. Katerina has a good medical background and understands the disease process of her mothers illness. -She was able to participate in an ipa visit with her mother just today. She feels comfort with being able to see her. She knows that her mother would not know she is there, even if she could visit with her to say goodbye -We did discuss her overall clinical deconditioned state and Katerina has decided to forgo further medical treatment and focus fully on comfort measures. -All blood work, medications, including antibiotics and antivirals (Remdesivir) will be discontinued, along with vital signs. -Comfort medications are ordered, including IV Morphine, Ativan, and Atropine. -Life expectancy likely hours to a few days. -PPS: deferred since physical assessment not completed. (2) Acute respiratory failure with hypoxia: (3) CKD (chronic kidney disease) stage 3, GFR 30-59 ml/min: (4) Pneumonia due to COVID-19 virus: (5) COVID-19 virus infection: History of Present Illness Reason for Consultation: goals of care Requesting Physician: Dr. Sánchez Attending Physician: Nelson Sánchez History of Present Illness This is an 85 year old female who presented to the [facility] ED from [facility] where she was noted to have increased lethargy, hypoxia and a new confirmation of COVID-19. The patients SPO2 was 85% on admission. Additional PMH includes: CHF, anxiety, CAD s/p DILMA , insomnia, and GERD. She had a recent inpatient hospitalization at [facility] from March 05- for pneumonia. She was admitted to the COVID unit and was started on steroids, received a dose of convalescent plasma and has received 5 days of Remdesivir. Her current WBC is 12.24. She has continued to have worsening lethargy and no appetite. The hospitalist has had conversation with he patients family who indicated that she has been declining and ultimately is ready to go. It appears from review of the chart, the family is leaning towards a more comfort approach should she decline further. Palliative Care was consulted to discuss goals of care. Please see A/P for further details. Thank you for involving Palliative Care with this patient Allergies Allergy/AdvReac Type Severity Reaction Status Date / Time NSAIDS (Non-Steroidal Allergy Intermediate GI UPSET, Verified 03/28/20 23:15 Anti-Inflamma GI BLEED morphine AdvReac Intermediate Vomiting Verified 03/28/20 23:15 Home Medications Home Medications Medication Instructions Recorded Confirmed Type apixaban [Eliquis] 5 mg PO BID 03/28/20 03/28/20 History atenolol 25 mg PO DAILY 03/28/20 03/28/20 History atorvastatin 10 mg PO DAILY 03/28/20 03/28/20 History escitalopram oxalate 10 mg PO DAILY 03/28/20 03/28/20 History furosemide [Lasix] 20 mg PO DAILY 03/28/20 03/28/20 History gabapentin 100 mg PO HS 03/28/20 03/28/20 History isosorbide mononitrate 30 mg PO DAILY 03/28/20 03/28/20 History lorazepam 0.5 mg PO QID 03/28/20 03/28/20 History mirtazapine 7.5 mg PO HS 03/28/20 03/28/20 History pantoprazole 40 mg PO BID 03/28/20 03/28/20 History potassium chloride 20 meq PO DAILY 03/28/20 03/28/20 History temazepam 15 mg PO HS 03/28/20 03/28/20 History Patient History Medical History (Updated 04/04/20 @ 12:25 by JENIFER Ayon) CAD (coronary artery disease) CKD (chronic kidney disease) stage 3, GFR 30-59 ml/min Current use of intermodal dispatcher anticoagulation Depression with anxiety Gastroesophageal reflux disease History of pulmonary embolism Hyperlipidemia Hypertension Insomnia Palliative care encounter Scoliosis Surgical History History of permanent cardiac pacemaker placement Social History Smoking Status: Unknown if ever smoked Hx Alcohol Use: No Hx Substance Use: No Preferred Language: Swazi Communication Ability: Effective Vp Data Required: No Beliefs That Will Affect Care: None marital status: Unknown Current Living Situation: Personal Care Facility Other Information That Helps Us Care for You: No Feels Safe at Home: Yes Safety Concerns: Feels Safe At This Time Assistive Devices: Oxygen - Continuous Assistive Devices Comment: none present Physical Exam Physical Exam: Physical exam deferred due to patient being in the COVID-19 unit Results & Data ([facility]) Vital Signs (Past 12 Hours) Vital Signs Temp Pulse Resp BP Pulse Ox 04/04/20 08:19 36.5 C 69 18 138/69 95 04/04/20 07:23 60 20 97 04/04/20 00:12 36.6 C 81 20 140/84 94 PG Care Time/CCT Total # of Minutes Spent Total Time Spent with Patient: Total time spent is greater than 50% in coordination of care (as documented) at patient's floor/unit and/or counseling patient: 70 Coding Level of Care Code 67423 Inpt Consult Level 3 Diagnoses Palliative care encounter Z51.5 Acute respiratory failure with hypoxia J96.01 CKD (chronic kidney disease) stage 3, GFR 30-59 ml/min N18.30 Pneumonia due to COVID-19 virus U07.1; J12.89 COVID-19 virus infection U07.1 Time Spent (min) 70 Time Spent Midlevel Total time spent 70 minutes with > 50% of that time spent discussing goals of care with the patients daughter, collaborating with IDT and providing symptom management.
[2020-04-04] MEDS ORDERED: LOPERAMIDE HCL 2 MG CAP PO PRN (11:50)
[2020-04-04] MEDS ORDERED: LOPERAMIDE HCL 2 MG CAP PO STA (11:50)
--- NOTE | 2020-04-04 11:51 | Hospitalist Progress Note ---
Date of Service April 04, 2020 Assessment & Plan (1) Pneumonia due to COVID-19 virus: Initial diagnosis on 03/26/2020 while at [facility]. Has had LLL pneumonia on cxr. Has received 8 days of dexamethasone, 1 unit of convalescent plasma earlier this stay, 3 days of remdesivir, and 7 days of IV zosyn. Despite the above as well as supportive care measures she has had steady decline all week. Her lung exam has worsened over the last 48 hours. Severe anorexia, severe weakness, sleeping all day/lethargic, metabolic encephalopathy, etc. have all worsened over the last 3-4 days. Patient has voiced a desire to stop routine care and be comfortable. This was voiced by the patient to the nursing staff yesterday. She confirmed this with me today. She had told her daughter over the last few weeks that she was ready to . Formal palliative care consult obtained. We are now transitioning to comfort care measures. Stop steroids, antibiotics, remdesivir, eliquis, etc. Morphine prn pain/air hunger. Ativan prn. Scop patch. NC O2. Ralph. Consider rectal tube for severe diarrhea; loperamide prn as well. Daughter, Katerina, updated extensively by phone today. She supports comfort care pathway. Appreciate palliative care assistance. (2) Acute metabolic encephalopathy: ongoing since admission. 2nd to COVID-19. (3) Acute respiratory failure with hypoxia: 2nd to COVID-19 infection and LLL pneumonia. See above. (4) CKD (chronic kidney disease) stage 3, GFR 30-59 ml/min: (5) History of permanent cardiac pacemaker placement: noted. Had been pacing on telemetry prior to d/c of monitoring. I mentioned to daughter we could deactivate the pacer if desired while on comfort care. (6) CHF (congestive heart failure): Admission and Anticipated Discharge Date Admission Date: March 28, 2020 Subjective very sleepy during the visit. I called her name, she did open eyes briefly, then quickly closed them. she was able to answer my questions. nursing staff stated that several times yesterday patient asked to "have everything stopped." she told staff she was ready to and go to [facility]. I asked her directly today if she wanted to stop her treatment and simply be comfortable. she replied yes. I asked her if she was wanting to pass comfortably and go to [facility] - again she replied yes. staff report severe anorexia, severe fatigue, ongoing harsh cough, and extreme sleepiness. also with skin breakdown in groin/buttocks region from severe, copious diarrhea. Review of Systems Review of Systems: denies pain in any location but unable to elicit full ROS Physical Exam Physical Exam: patient moaned when I was trying to examine her Constitutional: + acute distress (mild tachypnea with retractions ), + ill appearing, + altered mental status (Lethargic/sleepy but could wake during the visit) and + frail appearing ENMT: Mouth: + dry oral mucous membranes (severe ) Respiratory: + retractions, + cough and + tachypneic Auscultation: + crackles (extensive; b/l) and + wheezes (improved today ) Cardiovascular: Rate/Rhythm: regular rate and regular rhythm Heart Sounds: normal S1 and normal S2; no murmur Vessels: posterior tibial pulses present and dorsalis pedis pulses present; no JVD Extremities: + edema (1+ b/l legs) Gastrointestinal (Abdomen): normal bowel sounds, soft, nontender, no hepatosplenomegaly Psychiatric: Orientation: + not alert and + not oriented x 3 Results & Data Results & Data ([facility]) Vital Signs (Past 12 Hours) Vital Signs Temp Pulse Resp BP Pulse Ox 04/04/20 11:35 75 22 91 04/04/20 08:19 36.5 C 69 18 138/69 95 04/04/20 07:23 60 20 97 04/04/20 00:12 36.6 C 81 20 140/84 94 Laboratory Results Laboratory Results - last 24 hr 04/04/20 04/04/20 04/04/20 04:48 04:48 04:48 WBC 10.52 RBC 4.30 Hgb 11.3 L Hct 36.9 L MCV 85.8 MCH 26.3 MCHC 30.6 L RDW Std Deviation 61.4 H RDW Coeff of Wali 19.8 H Plt Count 137 MPV 10.5 H Immature Gran % (Auto) 0.4 Neut % (Auto) 82.6 Lymph % (Auto) 11.2 [place] % (Auto) 5.7 Eos % (Auto) 0.0 Baso % (Auto) 0.1 Neut # (Auto) 8.69 H Lymph # (Auto) 1.18 L [place] # (Auto) 0.60 H Eos # (Auto) 0.00 Baso # (Auto) 0.01 Immature Gran # (Auto) 0.04 H Platelet Estimate Normal Anisocytosis Present Echinocytes 1+ D-Dimer 550 H* Sodium 144 Potassium 3.6 Chloride 112 H Carbon Dioxide 29 Anion Gap 3.0 BUN 17 Creatinine 0.66 Est Cr Clr Drug Dosing 56.4 Est GFR ( Amer) 93.4 Est GFR (Non-Af Amer) 80.6 BUN/Creatinine Ratio 25.7 H Glucose 144 H Calcium 7.5 L C-Reactive Protein 2.89 H PG Care Time/CCT Total # of Minutes Spent Total Time Spent with Patient: Total time spent is greater than 50% in coordination of care (as documented) at patient's floor/unit and/or counseling patient: Coding Level of Care Code 71402 Subseq Hosp Care Lvl 3 Diagnoses Pneumonia due to COVID-19 virus U07.1; J12.89 Acute metabolic encephalopathy G93.41 Acute respiratory failure with hypoxia J96.01 CKD (chronic kidney disease) stage 3, GFR 30-59 ml/min N18.30 History of permanent cardiac pacemaker placement Z95.0 CHF (congestive heart failure) I50.9
[2020-04-04] MEDS ORDERED: ONDANSETRON INJ 2 MG/ML 2 ML VIAL IV PRN (12:16)
[2020-04-04] MEDS ORDERED: LORazepam 0.5 MG TAB PO PRN (12:16)
[2020-04-04] MEDS ORDERED: ATROPINE SULFATE 1% OP SOLN 2 ML BTL SL PRN (12:16)
[2020-04-04] MEDS: LORazepam 0.5 MG/1 ML VIAL IV PRN (13:50)
[2020-04-04] MEDS ORDERED: BUTT PASTE (ZINC OXIDE 16%) 171 APPLN/57 GM JAR EXT PRN (17:49)
[2020-04-04] MEDS: SCOPOLAMINE 1.5 MG TDSY TD SCH (18:31)
[2020-04-04] MEDS: CHECK SCOPOLAMINE PATCH PLACEMENT SCH (18:31)
[2020-04-05] MEDS: LORazepam 0.5 MG/1 ML VIAL IV PRN ×2 (02:47→15:03)
[2020-04-05] MEDS: CHECK SCOPOLAMINE PATCH PLACEMENT SCH ×3 (04:42→15:03)
[2020-04-05] MEDS ORDERED: ADVANCED PROBIOTIC 1250 MG CAPSULE PO SCH (08:00)
[2020-04-05] MEDS: LIDOCAINE 5% 1 PATCH TD SCH (09:18)
[2020-04-05] MEDS: dexAMETHasone 6 MG in SYRINGE 0 ML IV SCH (09:50)
[2020-04-05] MEDS: MoRPHine SULFATE 2 MG/ML CARP IV PRN (15:05)
--- NOTE | 2020-04-05 20:58 | Hospitalist Progress Note ---
Date of Service April 05, 2020 Assessment & Plan (1) Palliative care encounter: Patient transitioned to comfort care pathway on 04/04/20. Continue morphine prn, ativan prn, NC O2, hubbard, anti-emetics, and other comfort measures. Update given to daughter Katerina by phone today. Katerina is a pharmacist at [employer]. She is an only-child. Phone: home # [phone] // cell # [phone] (2) Pneumonia due to COVID-19 virus: Initial diagnosis on 03/26/2020 while at [facility]. Had LLL pneumonia on cxr at admission. Received 8 days of dexamethasone, 1 unit of convalescent plasma earlier this stay, 3 days of remdesivir, and 7 days of IV zosyn. Despite the above as well as supportive care measures she continued to decline with worsening pulmonary status. Severe anorexia, severe weakness, sleeping all day/lethargic, metabolic encephalopathy, etc. all worsened this week. Patient voiced a desire to stop routine care and be comfortable. This was voiced by the patient to the nursing staff as well. She had told her daughter over the last few weeks that she was ready to . Formal palliative care consult obtained on 04/04 and patient transitioned to comfort care measures. Cont Morphine prn pain/air hunger. Ativan prn. Scop patch prn. NC O2. Hubbard. Consider rectal tube for severe diarrhea if it recurs. Loperamide given yesterday w/ good results. (3) Acute metabolic encephalopathy: ongoing since admission. 2nd to COVID-19. (4) Acute respiratory failure with hypoxia: 2nd to COVID-19 infection and LLL pneumonia. See above. (5) CKD (chronic kidney disease) stage 3, GFR 30-59 ml/min: d/c any further labs (6) History of permanent cardiac pacemaker placement: noted. Had been pacing on telemetry prior to d/c of monitoring. I mentioned to daughter we could deactivate the pacer if desired while on comfort care. (7) CHF (congestive heart failure): Admission and Anticipated Discharge Date Admission Date: March 28, 2020 Subjective patient moaning when I entered room. she had inadvertently pulled her oxygen out of her nose. O2 sats on monitor were 80% in room air and she was tachypneic. she was confused the entire visit. at one point though she said "just let me go." I replaced the O2 back in her nose and O2 sats came up into the 90s after about 1-2 minutes. she c/o feeling cold - staff provided 2 warm blankets and I placed these on her. she ultimately settled down after getting the blankets and O2 back on. Review of Systems Review of Systems: Unobtainable due to cognitive status Physical Exam Constitutional: + acute distress and + altered mental status ENMT: Mouth: + dry oral mucous membranes Respiratory: + respiratory distress, + retractions and + tachypneic Auscultation: + crackles Cardiovascular: Rate/Rhythm: regular rhythm and + tachycardic Heart Sounds: normal S1 and normal S2; no murmur Vessels: + JVD, posterior tibial pulses present and dorsalis pedis pulses present Extremities: + edema (1+ b/l ) Gastrointestinal (Abdomen): normal bowel sounds, soft, nontender, no hepatosplenomegaly Psychiatric: Orientation: oriented to person; + not alert, + not oriented to place and + not oriented to time Results & Data Results & Data ([facility]) Vital Signs (Past 12 Hours) Vital Signs Pulse Resp BP Pulse Ox 04/05/20 20:10 106 H 16 156/97 H 89 L PG Care Time/CCT Total # of Minutes Spent Total Time Spent with Patient: Total time spent is greater than 50% in coordination of care (as documented) at patient's floor/unit and/or counseling patient: Coding Level of Care Code 23015 Subseq Hosp Care Lvl 1 Diagnoses Palliative care encounter Z51.5 Pneumonia due to COVID-19 virus U07.1; J12.89 Acute metabolic encephalopathy G93.41 Acute respiratory failure with hypoxia J96.01 CKD (chronic kidney disease) stage 3, GFR 30-59 ml/min N18.30 History of permanent cardiac pacemaker placement Z95.0 CHF (congestive heart failure) I50.9 Heart failure type: unspecified Heart failure chronicity: chronic (1) CHF (congestive heart failure) Heart failure type: unspecified Heart failure chronicity: chronic Qualified Code(s): I50.9 - Heart failure, unspecified
[2020-04-06] MEDS: CHECK SCOPOLAMINE PATCH PLACEMENT SCH ×3 (00:44→15:38)
[2020-04-06] MEDS: SCOPOLAMINE 1.5 MG TDSY TD SCH (00:45)
[2020-04-06] MEDS: LIDOCAINE 5% 1 PATCH TD SCH (09:02)
--- NOTE | 2020-04-06 10:51 | Hospitalist Progress Note ---
Date of Service April 06, 2020 Assessment & Plan (1) Palliative care encounter: Patient transitioned to comfort care pathway on 04/04/20. Continue morphine prn, ativan prn, NC O2, hubbard, anti-emetics, and other comfort measures. patient is comfortable today Update given to daughter Katerina by phone today. Katerina is a pharmacist at [employer]. She is an only-child. Phone: home # [phone] // cell # [phone] (2) Pneumonia due to COVID-19 virus: Initial diagnosis on 03/26/2020 while at [facility]. Had LLL pneumonia on cxr at admission. Received 8 days of dexamethasone, 1 unit of convalescent plasma earlier this stay, 3 days of remdesivir, and 7 days of IV zosyn. Despite the above as well as supportive care measures she continued to decline with worsening pulmonary status. Severe anorexia, severe weakness, sleeping all day/lethargic, metabolic encephalopathy, etc. all worsened this week. Patient voiced a desire to stop routine care and be comfortable. This was voiced by the patient to the nursing staff as well. She had told her daughter over the last few weeks that she was ready to . Formal palliative care consult obtained on 04/04 and patient transitioned to comfort care measures. Cont Morphine prn pain/air hunger. Ativan prn. Scop patch prn. NC O2. Hubbard. Consider rectal tube for severe diarrhea if it recurs. Loperamide given yesterday w/ good results. (3) Acute metabolic encephalopathy: ongoing since admission. 2nd to COVID-19. (4) Acute respiratory failure with hypoxia: 2nd to COVID-19 infection and LLL pneumonia. See above. (5) CKD (chronic kidney disease) stage 3, GFR 30-59 ml/min: d/c any further labs (6) History of permanent cardiac pacemaker placement: noted. Had been pacing on telemetry prior to d/c of monitoring. I mentioned to daughter we could deactivate the pacer if desired while on comfort care. (7) CHF (congestive heart failure): Patient with no evidence of hypervolemia. Volume contacted clinically and lab-jones (high Na). Hold lasix. EF uncertain. Admission and Anticipated Discharge Date Admission Date: March 28, 2020 Subjective patient sleeping unresponsive, appears comfortable Review of Systems Review of Systems: Unobtainable due to reduced consciousness Physical Exam Constitutional: + ill appearing and + frail appearing; no acute distress Respiratory: normal respiratory effort Cardiovascular: RRR, no murmur, no edema Gastrointestinal (Abdomen): normal bowel sounds, soft, nontender, no hepatosplenomegaly Neurologic: + obtunded PG Care Time/CCT Total # of Minutes Spent Total Time Spent with Patient: Total time spent is greater than 50% in coordination of care (as documented) at patient's floor/unit and/or counseling patient: Coding Level of Care Code 08311 Subseq Hosp Care Lvl 1 Diagnoses Palliative care encounter Z51.5 Pneumonia due to COVID-19 virus U07.1; J12.89 Acute metabolic encephalopathy G93.41 Acute respiratory failure with hypoxia J96.01 CKD (chronic kidney disease) stage 3, GFR 30-59 ml/min N18.30 History of permanent cardiac pacemaker placement Z95.0 CHF (congestive heart failure) I50.9 Heart failure type: unspecified Heart failure chronicity: chronic (1) CHF (congestive heart failure) Heart failure type: unspecified Heart failure chronicity: chronic Qualified Code(s): I50.9 - Heart failure, unspecified
[2020-04-06] MEDS: MoRPHine SULFATE 2 MG/ML CARP IV PRN ×2 (15:05→21:42)
[2020-04-06] MEDS: LORazepam 0.5 MG/1 ML VIAL IV PRN (16:05)
[2020-04-06] MEDS: LORazepam 0.5 MG TAB PO PRN (22:25)
[2020-04-07] MEDS: CHECK SCOPOLAMINE PATCH PLACEMENT SCH ×3 (00:22→15:56)
[2020-04-07] MEDS: LIDOCAINE 5% 1 PATCH TD SCH (08:29)
--- NOTE | 2020-04-07 13:45 | Hospitalist Progress Note ---
Date of Service April 07, 2020 Assessment & Plan (1) Palliative care encounter: Patient transitioned to comfort care pathway on 04/04/20. Continue morphine prn, ativan prn, NC O2, hubbard, anti-emetics, and other comfort measures. patient is comfortable today, requires sporadic doses of Ativan/Morphine, nothing scheduled Update given to daughter Katerina by phone on 04/07 she said she tried to speak with her mom on the phone but she was minimally responsive . 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 She is an only- child. Phone: home # [phone] // cell # [phone] (2) Pneumonia due to COVID-19 virus: Initial diagnosis on 03/26/2020 while at [facility]. Had LLL pneumonia on cxr at admission. Received 8 days of dexamethasone, 1 unit of convalescent plasma earlier this stay, 3 days of remdesivir, and 7 days of IV zosyn. Despite the above as well as supportive care measures she continued to decline with worsening pulmonary status. Severe anorexia, severe weakness, sleeping all day/lethargic, metabolic e ncephalopathy, etc. all worsened this week. Patient voiced a desire to stop routine care and be comfortable. This was voiced by the patient to the nursing staff as well. She had told her daughter over the last few weeks that she was ready to . Formal palliative care consult obtained on 04/04 and patient transitioned to comfort care measures. Cont Morphine prn pain/air hunger. Ativan prn. Scop patch prn. NC O2. Hubbard. (3) Acute metabolic encephalopathy: ongoing since admission. 2nd to COVID-19. (4) Acute respiratory failure with hypoxia: 2nd to COVID-19 infection and LLL pneumonia. See above. (5) CKD (chronic kidney disease) stage 3, GFR 30-59 ml/min: d/c any further labs (6) History of permanent cardiac pacemaker placement: noted. Had been pacing on telemetry prior to d/c of monitoring. (7) CHF (congestive heart failure): Patient with no evidence of hypervolemia. Volume contacted clinically and lab-jones (high Na). Hold lasix. EF uncertain. Admission and Anticipated Discharge Date Admission Date: March 28, 2020 Subjective patient sleeping required one dose of Morphine and Ativan yesterday and one dose over night, otherwise comfortable RN said she spoke to her daughter I called her daughter to provide updated on status Review of Systems Review of Systems: Unobtainable due to reduced consciousness Physical Exam Constitutional: + ill appearing and + frail appearing; no acute distress Respiratory: normal respiratory effort Cardiovascular: RRR, no murmur, no edema Gastrointestinal (Abdomen): normal bowel sounds, soft, nontender, no hepatosplenomegaly Neurologic: + obtunded Results & Data Results & Data ([facility]) Medications Administered Current Inpatient Medications Acetaminophen (Acetaminophen 325 Mg Tab) 650 mg PO Q4H PRN PRN Reason: Pain or Fever Stop: 04/27/20 23:55 Last Admin: 04/04/20 09:48 Dose: 650 mg Documented by: Al Hydrox/Mg Hydrox/Simethicone (Aluminum/Magnesium Susp 30 Ml Udc) 15 ml PO Q4H PRN PRN Reason: Dyspepsia Stop: 04/27/20 23:55 Atropine Sulfate (Atropine Sulfate 1% Op Soln 2 Ml Btl) 4 drops SL Q1H PRN PRN Reason: Secretions or Pulm Congestion Stop: 05/04/20 12:15 Lorazepam (Ativan) 0.5 mg in 1 mls @ 0.5 mls/min IV Q4H PRN PRN Reason: anxiety/agitation Stop: 05/04/20 11:51 Last Admin: 04/06/20 16:05 Dose: 0.5 mls/min Documented by: Lidocaine (Lidocaine 5% 1 Patch) 1 patch TD QAM MAYRA Stop: 05/01/20 14:59 Last Admin: 04/07/20 08:29 Dose: 1 patch Documented by: Lorazepam (Lorazepam 0.5 Mg Tab) 0.5 mg PO QID PRN PRN Reason: Anxiety Stop: 04/28/20 16:16 Last Admin: 04/06/20 22:25 Dose: 0.5 mg Documented by: Lorazepam (Lorazepam 0.5 Mg Tab) 0.5 mg PO Q4H PRN PRN Reason: Anxiety/Agitation Stop: 05/04/20 12:15 Miscellaneous (Check Scopolamine Patch Placement) 1 ea N/A QS MAYRA Stop: 05/04/20 15:59 Last Admin: 04/07/20 08:28 Dose: 1 ea Documented by: Miscellaneous (Remove Transderm-Scop Patch) 1 ea N/A Q3D@1514 [facility] Stop: 05/04/20 15:13 Last Admin: 04/04/20 18:31 Dose: Not Given Documented by: Morphine Sulfate (Morphine Sulfate 2 Mg/Ml Carp) 2 mg IV Q1H PRN PRN Reason: Pain or air hunger Stop: 04/18/20 11:51 Last Admin: 04/06/20 21:42 Dose: 2 mg Documented by: Ondansetron HCl (Ondansetron Inj 2 Mg/Ml 2 Ml Vial) 4 mg IV Q6H PRN PRN Reason: Nausea Stop: 04/27/20 23:55 Last Admin: 04/03/20 09:13 Dose: 4 mg Documented by: Ondansetron HCl (Ondansetron Inj 2 Mg/Ml 2 Ml Vial) 4 mg IV Q4H PRN PRN Reason: Nausea And Vomiting Stop: 05/04/20 12:15 Petrolatum (Butt Paste (Zinc Oxide 16%) 171 Appln/57 Gm Jar) 1 appln EXT Q1H PRN PRN Reason: diaper rash Stop: 05/04/20 17:59 Scopolamine (Scopolamine 1.5 Mg Tdsy) 1.5 mg TD Q3D@1515 [facility] Stop: 05/04/20 15:14 Last Admin: 04/06/20 00:45 Dose: 1.5 mg Documented by: PG Care Time/CCT Total # of Minutes Spent Total Time Spent with Patient: Total time spent is greater than 50% in coordination of care (as documented) at patient's floor/unit and/or counseling patient: Coding Level of Care Code 89712 Subseq Hosp Care Lvl 1 Diagnoses Palliative care encounter Z51.5 Pneumonia due to COVID-19 virus U07.1; J12.89 Acute metabolic encephalopathy G93.41 Acute respiratory failure with hypoxia J96.01 CKD (chronic kidney disease) stage 3, GFR 30-59 ml/min N18.30 History of permanent cardiac pacemaker placement Z95.0 CHF (congestive heart failure) I50.9 Heart failure type: unspecified Heart failure chronicity: chronic (1) CHF (congestive heart failure) Heart failure type: unspecified Heart failure chronicity: chronic Qualified Code(s): I50.9 - Heart failure, unspecified
[2020-04-07] MEDS: LORazepam 0.5 MG/1 ML VIAL IV PRN (15:51)
[2020-04-07] MEDS: SCOPOLAMINE 1.5 MG TDSY TD SCH (15:56)
[2020-04-07] MEDS: ACETAMINOPHEN 325 MG TAB PO PRN (21:04)
[2020-04-07] MEDS: LORazepam 0.5 MG TAB PO PRN (21:04)
[2020-04-08] MEDS: CHECK SCOPOLAMINE PATCH PLACEMENT SCH ×4 (00:09→23:55)
[2020-04-08] MEDS: LORazepam 0.5 MG TAB PO PRN (05:33)
[2020-04-08] MEDS: MoRPHine SULFATE 2 MG/ML CARP IV PRN ×2 (10:04→23:30)
[2020-04-08] MEDS: LIDOCAINE 5% 1 PATCH TD SCH (10:05)
--- NOTE | 2020-04-08 17:54 | Hospitalist Progress Note ---
Date of Service April 08, 2020 Assessment & Plan (1) Palliative care encounter: Patient transitioned to comfort care pathway on 04/04/20. Is comfortable at this time Continue morphine prn, ativan prn, NC O2, hubbard, anti-emetics, and other comfort measures. -Requires sporadic doses of Ativan/Morphine, nothing scheduled We will contact daughter Katerina who is a pharmacist at [employer] with an update. She is an only-child. Phone: home # [phone] // cell # [phone] (2) Pneumonia due to COVID-19 virus: Initial diagnosis on 03/26/2020 while at [facility]. Had LLL pneumonia on cxr at admission. Received 8 days of dexamethasone, 1 unit of convalescent plasma earlier this stay, 3 days of remdesivir, and 7 days of IV zosyn. Despite the above as well as supportive care measures she continued to decline with worsening pulmonary status. Severe anorexia, severe weakness, sleeping all day/lethargic, metabolic encephalopathy, etc. all worsened this week. Patient voiced a desire to stop routine care and be comfortable. This was voiced by the patient to the nursing staff as well. She had told her daughter over the last few weeks that she was ready to . Formal palliative care consult obtained on 04/04 and patient transitioned to comfort care measures. Cont Morphine prn pain/air hunger. Ativan prn. Scop patch prn. NC O2. Hubbard. (3) Acute metabolic encephalopathy: ongoing since admission. 2nd to COVID-19. (4) Acute respiratory failure with hypoxia: 2nd to COVID-19 infection and LLL pneumonia. See above. Continue oxygen as needed for comfort (5) CKD (chronic kidney disease) stage 3, GFR 30-59 ml/min: d/c any further labs (6) History of permanent cardiac pacemaker placement: noted. Had been pacing on telemetry prior to d/c of monitoring. (7) CHF (congestive heart failure): Patient with no evidence of hypervolemia. Volume contacted clinically and lab-jones (high Na). Continue to hold lasix. EF uncertain. Disposition-continue to stay in the hospital, prognosis poor. Expect she will pass away possibly in the next 7 days Admission and Anticipated Discharge Date Admission Date: March 28, 2020 Subjective Patient is sleeping deeply but does open her eyes and answers questions. I asked if she needed anything or need me to call her daughter and she said "no, she will call me later." She then fell back asleep. Nurse reports that she required some Ativan earlier for restlessness and some morphine from breathlessness. She has not eaten anything or drank all day. Review of Systems Review of Systems: Unobtainable due to reduced consciousness Physical Exam Constitutional: + ill appearing and + thin; no acute distress Eyes: + anicteric sclerae Neck: trachea midline, no thyromegaly Respiratory: normal respiratory effort (With nasal cannula in place); no cough Auscultation: + crackles (At the bases bilaterally) and + rhonchi (At left base); no wheezes Cardiovascular: RRR, no murmur, no edema Chest (Breasts): Chest: normal inspection of chest Gastrointestinal (Abdomen): normal bowel sounds, soft, nontender, no hepatosplenomegaly Musculoskeletal: Extremities: extremities normal to inspection; no cyanosis and no clubbing Skin: no rashes, warm and dry Neurologic: + not awake Genitourinary: + abnormal external appearance (Hubbard catheter in place) Lymphatic: no lymphedema PG Care Time/CCT Total # of Minutes Spent Total Time Spent with Patient: Total time spent is greater than 50% in coordination of care (as documented) at patient's floor/unit and/or counseling patient: Coding Level of Care Code 77735 Subseq Hosp Care Lvl 1 Diagnoses Palliative care encounter Z51.5 Pneumonia due to COVID-19 virus U07.1; J12.89 Acute metabolic encephalopathy G93.41 Acute respiratory failure with hypoxia J96.01 CKD (chronic kidney disease) stage 3, GFR 30-59 ml/min N18.30 History of permanent cardiac pacemaker placement Z95.0 CHF (congestive heart failure) I50.9 Heart failure type: unspecified Heart failure chronicity: chronic (1) CHF (congestive heart failure) Heart failure type: unspecified Heart failure chronicity: chronic Qualified Code(s): I50.9 - Heart failure, unspecified
[2020-04-08] MEDS: LORazepam 0.5 MG/1 ML VIAL IV PRN (23:37)
[2020-04-09] MEDS: MoRPHine SULFATE 2 MG/ML CARP IV PRN ×3 (03:21→21:11)
[2020-04-09] MEDS: CHECK SCOPOLAMINE PATCH PLACEMENT SCH ×2 (07:43→16:45)
[2020-04-09] MEDS: LORazepam 0.5 MG/1 ML VIAL IV PRN (13:32)
--- NOTE | 2020-04-09 14:44 | Hospitalist Progress Note ---
Date of Service April 09, 2020 Assessment & Plan (1) Palliative care encounter: Patient transitioned to comfort care pathway on 04/04/20. Is comfortable at this time. A little more alert today and drinking and eating slightly Continue morphine prn, ativan prn, NC O2, hubbard, anti-emetics, and other comfort measures. -Requires sporadic doses of Ativan/Morphine, nothing scheduled Her primary contact is her daughter Katerina who is a pharmacist at [employer] with an update. She is an only-child. Phone: home # [phone] // cell # [phone] (2) Pneumonia due to COVID-19 virus: Initial diagnosis on 03/26/2020 while at [facility]. Had LLL pneumonia on cxr at admission. Received 8 days of dexamethasone, 1 unit of convalescent plasma earlier this stay, 3 days of remdesivir, and 7 days of IV zosyn. Despite the above as well as supportive care measures she continued to decline with worsening pulmonary status. Severe anorexia, severe weakness, sleeping all day/lethargic, metabolic encephalopathy, etc. all worsened this week. Patient voiced a desire to stop routine care and be comfortable. This was voiced by the patient to the nursing staff as well. She had told her daughter over the last few weeks that she was ready to . Formal palliative care consult obtained on 04/04 and patient transitioned to comfort care measures. Cont Morphine prn pain/air hunger. Ativan prn. Scop patch prn. NC O2. Hubbard. (3) Acute metabolic encephalopathy: ongoing since admission. 2nd to COVID-19. (4) Acute respiratory failure with hypoxia: 2nd to COVID-19 infection and LLL pneumonia. See above. Continue oxygen as needed for comfort (5) CKD (chronic kidney disease) stage 3, GFR 30-59 ml/min: d/c any further labs (6) History of permanent cardiac pacemaker placement: noted. Had been pacing on telemetry prior to d/c of monitoring. (7) CHF (congestive heart failure): Patient with no evidence of hypervolemia. Volume contacted clinically and lab-jones (high Na). Continue to hold lasix. EF uncertain. Disposition-continue to stay in the hospital, prognosis poor. Expect she will pass away possibly in the next 7 days Admission and Anticipated Discharge Date Admission Date: March 28, 2020 Subjective Patient was sleeping and had a very coarse cough when she woke up and answer some of my questions. She denies pain but moaned to bed. Says that she does not feel like eating. Review of Systems Review of Systems: All systems reviewed & are unremarkable except as noted in HPI & below Physical Exam Constitutional: + ill appearing and + thin; no acute distress Eyes: + anicteric sclerae Neck: trachea midline, no thyromegaly Respiratory: normal respiratory effort (With nasal cannula in place) and + cough (Very coarse) Auscultation: + crackles (At the bases bilaterally) and + rhonchi (At left base); no wheezes Cardiovascular: Rate/Rhythm: regular rhythm and + tachycardic Extremities: + edema (Left upper extremity with 1+ pitting edema) Chest (Breasts): Chest: normal inspection of chest Gastrointestinal (Abdomen): Inspection/Auscultation: + hypoactive bowel sounds; abdomen not distended Percussion/Palpation: abdomen soft; abdomen nontender and no guarding Musculoskeletal: Extremities: no cyanosis and no clubbing Skin: no rashes, warm and dry Neurologic: + not awake (Sleeping but did wake up easily to verbal stimulus) Psychiatric: Orientation: cooperative Speech: normal rate/rhythm/volume of speech Affect: + anxious affect Genitourinary: + abnormal external appearance (Hubbard catheter in place) PG Care Time/CCT Total # of Minutes Spent Total Time Spent with Patient: Total time spent is greater than 50% in coordination of care (as documented) at patient's floor/unit and/or counseling patient: Coding Level of Care Code 90647 Subseq Hosp Care Lvl 1 Diagnoses Palliative care encounter Z51.5 Pneumonia due to COVID-19 virus U07.1; J12.89 Acute metabolic encephalopathy G93.41 Acute respiratory failure with hypoxia J96.01 CKD (chronic kidney disease) stage 3, GFR 30-59 ml/min N18.30 History of permanent cardiac pacemaker placement Z95.0 CHF (congestive heart failure) I50.9 Heart failure chronicity: chronic Heart failure type: unspecified (1) CHF (congestive heart failure) Heart failure chronicity: chronic Heart failure type: unspecified Qualified Code(s): I50.9 - Heart failure, unspecified
[2020-04-10] MEDS: MoRPHine SULFATE 2 MG/ML CARP IV PRN ×3 (00:16→10:36)
[2020-04-10] MEDS: CHECK SCOPOLAMINE PATCH PLACEMENT SCH ×3 (00:16→17:25)
[2020-04-10] MEDS: SCOPOLAMINE 1.5 MG TDSY TD SCH (17:25)
--- NOTE | 2020-04-10 17:51 | Discharge Summary ---
Date of Service April 10, 2020 Admission HPI Per Admitting Provider The patient is an 85-year-old female with a past medical history including hypertension, hyperlipidemia, depression, CHF, anxiety, CAD, insomnia and GERD. She presents to the ED as noted above. She required 4 L of nasal cannula oxygen in the ED to get pulse ox to 94% range. In the emergency department, she was confused and lethargic. Principal Diagnosis COVID-19 Pneumonia, Acute respiratory failure with hypoxia, Acute metabolic encephalopathy Discharge Exam Constitutional Pronounced , absence of pulses, heart sounds, breath sounds. Pupils fixed and dilated Not repsonsive to verbal and tactile stimulus Discharge Data Allergies Allergy/AdvReac Type Severity Reaction Status Date / Time NSAIDS (Non-Steroidal Allergy Intermediate GI UPSET, Verified 03/28/20 23:15 Anti-Inflamma GI BLEED morphine AdvReac Intermediate Vomiting Verified 03/28/20 23:15 Consultations 03/28/20 19:47 ED Decision to Admit Stat 03/28/20 23:56 Consult Case Management - Discharge Planning Routine Consult Case Management - Discharge Planning Routine Consult Optomechanical Engineer Routine 04/03/20 17:12 Consult Palliative Care Routine 04/04/20 12:17 Consult Case Management - Discharge Planning Routine Consult Palliative Care Routine 04/09/20 18:29 Consult Case Management - Discharge Planning Routine Ordered Studies 03/29/20 03:56 CT head/brain wo con Urgent Hospital Course (1) Palliative care encounter: Patient transitioned to comfort care pathway on 04/04/20. comfort measures provided and she Family notified (2) Pneumonia due to COVID-19 virus: Initial diagnosis on 03/26/2020 while at [facility]. Had LLL pneumonia on cxr at admission. Received 8 days of dexamethasone, 1 unit of convalescent plasma earlier this stay, 3 days of remdesivir, and 7 days of IV zosyn. Despite the above as well as supportive care measures she continued to decline with worsening pulmonary status. Severe anorexia, severe weakness, sleeping all day/lethargic, metabolic encephalopathy, etc. all worsened this week. Patient voiced a desire to stop routine care and be comfortable. This was voiced by the patient to the nursing staff as well. She had told her daughter over the last few weeks that she was ready to . Formal palliative care consult obtained on 04/04 and patient transitioned to comfort care measures. received Morphine prn pain/air hunger. Ativan prn. Scop patch prn. NC O2. Ralph. (3) Acute metabolic encephalopathy: ongoing since admission. 2nd to COVID-19. (4) Acute respiratory failure with hypoxia: 2nd to COVID-19 infection and LLL pneumonia. received oxygen as needed for comfort (5) CKD (chronic kidney disease) stage 3, GFR 30-59 ml/min: d/c any further labs (6) History of permanent cardiac pacemaker placement: noted. Had been pacing on telemetry prior to d/c of monitoring. (7) CHF (congestive heart failure): Patient with no evidence of hypervolemia. Volume contacted clinically and lab-jones (high Na). Continue to hold lasix. EF uncertain. Total Time Total Time Spent Total Time Spent (In Minutes): 20 min Total Time Includes: Examination of the Patient Discharge Plan Discharge Items Patient Disposition: Coding Level of Care Code D/C Day Management <30 mins Diagnoses Palliative care encounter Z51.5 Pneumonia due to COVID-19 virus U07.1; J12.89 Acute metabolic encephalopathy G93.41 Acute respiratory failure with hypoxia J96.01 CKD (chronic kidney disease) stage 3, GFR 30-59 ml/min N18.30 History of permanent cardiac pacemaker placement Z95.0 CHF (congestive heart failure) I50.9 Heart failure chronicity: chronic Heart failure type: unspecified
--- NOTE | 2020-04-10 17:51 | Death Pronouncement Note ---
Date of Service April 10, 2020 Pronouncement Note Admission Date Admission Date: March 28, 2020 Date and Time of Date of : 04/10/20 Time of : 16:53 PCOD Preliminary cause of : Pneumonia due to COVID-19 virus Contributing Factors (1) Palliative care encounter: (2) Pneumonia due to COVID-19 virus: (3) Acute metabolic encephalopathy: (4) Acute respiratory failure with hypoxia: (5) CKD (chronic kidney disease) stage 3, GFR 30-59 ml/min: (6) History of permanent cardiac pacemaker placement: (7) CHF (congestive heart failure): Hospital Course Hospital Course: See discharge summary Additional Data Confirmation of : no pulse, no respirations, no heart sounds and pupils fixed and dilated Family: contacted Attending/PCP notified?: Yes Attending physician: Monika Echavarria MD Was code activated?: No Autopsy requested?: No test examiner notified?: Yes Organ bank notified?: No Advance directives: Yes Coding Level of Care Code None Diagnoses Palliative care encounter Z51.5 Pneumonia due to COVID-19 virus U07.1; J12.89 Acute metabolic encephalopathy G93.41 Acute respiratory failure with hypoxia J96.01 CKD (chronic kidney disease) stage 3, GFR 30-59 ml/min N18.30 History of permanent cardiac pacemaker placement Z95.0 CHF (congestive heart failure) I50.9 Heart failure chronicity: chronic Heart failure type: unspecified
== END 2020-04-10 16:53 | disposition expired | DRG 177 ==
LOC: ED 19:16 → 1E 21:21 → SUATTDRO 21:21 → 1E 23:26 → 2E 03-29 14:28